=== PATIENT | female | born 1970 | race African-American/Black ===

== ENCOUNTER 2016-06-27 12:12 | Emergency (ER) | payer MEDICAID ==
[~2016-06-27 12:12] MED LIST: CEPH250C PO; GLYB5TAB8 PO; IBUP600T27 PO; LISI-275 PO; METF-312 PO
== END 2016-06-27 14:21 | disposition left against medical advice (07) ==
LOC: ER 12:17
DX: N64.4 Mastodynia (principal); R42 Dizziness and giddiness; Z53.21 Procedure and treatment not carried out due to patient leaving prior to being seen by health care provider; W19.XXXA Unspecified fall, initial encounter; Y93.89 Activity, other specified; Y99.8 Other external cause status; Y92.89 Other specified places as the place of occurrence of the external cause
CPT/HCPCS: 93005

== ENCOUNTER 2016-09-05 12:57 | Inpatient (IN) | payer MEDICAID ==
[~2016-09-05] VITALS: Ht 167.6 cm; Wt 147.3 kg
[2016-09-05 14:05] LABS: Basophils # (auto) 0.1 uL; Basophils % (auto) 0.3 % (0.0-2.0); Eosinophils # (auto) 0.1 uL; Eosinophils % (auto) 0.4 % (0.0-7.0); Hematocrit 43.3 % (36.0-46.0); Hemoglobin 14.2 g/dL (12.2-16.2); Lymphocytes # (auto) 3.6 uL; Lymphocytes % (auto) 24.5 % (10.0-50.0); Mean Corpuscular Hemoglobin 30.5 pg (28.0-32.0); Mean Corpuscular Hgb Conc. 32.7 g/dL (32.0-36.0); Mean Corpuscular Volume 93.3 fL (80.0-100.0); Mean Platelet Volume 9.1 fL (7.4-10.4); Monocytes # (auto) 1.3 uL; Monocytes % (auto) 9.1 % (0.0-12.0); Neutrophils # (auto) 9.7 uL; Neutrophils % (auto) 65.7 % (37.0-80.0); Platelet Count (auto) 413 10^3/uL (140-450); Red Cell Distribution Width 13.4 % (11.6-16.0); White Blood Cell 14.7 10^3/uL (4.4-10.8)
[2016-09-05 14:37] LABS: Albumin 2.5 g/dL (3.4-5.0); Alkaline Phosphatase 93 U/L (45-117); Anion Gap 11 (5-15); Aspartate Aminotransferase 25 U/L (15-37); BUN/Creatinine Ratio 8.5; Bilirubin, Total 0.7 mg/dL (0.2-1.0); Blood Urea Nitrogen 10 mg/dL (7-18); Calcium 8.8 mg/dL (8.5-10.1); Carbon Dioxide 28 mmol/L (21-32); Chloride 90 mmol/L (98-107); GFR African American 64 mL/min; GFR Non-African American 53 mL/min; Glucose 308 mg/dL (74-106); Magnesium 1.9 mg/dL (1.6-2.6); Potassium 3.6 mmol/L (3.5-5.1); Sodium 129 mmol/L (136-145)
[2016-09-05 17:07] LABS: Urine Bilirubin Negative (Negative); Urine Color Yellow (Yellow); Urine Glucose TRACE mg/dL (Normal); Urine Hyaline Cast MOD /lpf (0 - 2); Urine Ketone Negative (Negative); Urine Mucus FEW (None Seen); Urine Nitrite Negative (Negative); Urine RBC 52 /hpf (0 - 4); Urine Squamous Epithelial Cell FEW /hpf (<5); Urine Urobilinogen Normal (Negative); Urine WBC Clumps PRESENT /hpf (None Seen); Urine pH 5.5 (5.0-8.0)
[2016-09-05 17:08] LABS: Urine Blood 1+ /uL (Negative)
[2016-09-05] MEDS ORDERED: cefTRIAXone 1GM/50ML D5W 50 ML IV ONE (17:30)
[2016-09-05] MEDS ORDERED: IPRATROPIUM BROM 0.5 MG/2.5ML INH SOL HHN ONE (17:30)
[2016-09-05] MEDS ORDERED: ALBUTEROL SULF 2.5 MG/0.5ML(0.5%) NEB SOLN HHN ONE (17:30)
[2016-09-05] MEDS ORDERED: methylPREDNISolone SOD SUCC 125 MG/2 ML VL IV ONE (17:30)
[2016-09-05] MEDS ORDERED: MORPHINE SULF INJ 2 MG/ML SYRINGE 1ML IV PRN (17:45)
[2016-09-05] MEDS ORDERED: NITROGLYCERIN 0.4 MG SL TAB SL PRN (17:45)
[2016-09-05 18:25] LABS: REFLEX LACTIC ACID YES OR NO YES
[2016-09-05 18:32] LABS: B-Type Natriuretic Peptide 6.38 pg/mL (0-100)
[2016-09-05 18:34] LABS: Temperature: 22.7 C (20.0-25.0)
[2016-09-05] MEDS ORDERED: SODIUM CHLORIDE 0.9% 1,000 ML IV SCH (20:00)
[2016-09-05] MEDS ORDERED: LISI10TA6 PO (21:06)
[2016-09-05] MEDS ORDERED: GLIP-115 PO (21:06)
[2016-09-05] MEDS ORDERED: GABA300C8 PO (21:06)
[2016-09-05] MEDS ORDERED: HYDR12.56 PO (21:06)
[2016-09-05] MEDS ORDERED: INSLANTI SC (21:06)
[2016-09-05 21:30] VITALS: BP 125/80
[2016-09-05] MEDS ORDERED: DEXTROSE (50%) 50ML SYRG IV PRN ×2 (21:30→23:45)
[2016-09-05 22:00] VITALS: BP 125/80
[2016-09-05] MEDS ORDERED: [UNRECOGNIZED DRUG - OTHER] SC SCH (22:00)
[2016-09-05] MEDS ORDERED: InsuLIN REG 1unit/0.01ml Soln (100units/ml) SC SCH (22:00)
[2016-09-05] MEDS ORDERED: ACCU-CHEK COMFORT CURVE STRIP VI SCH (22:00)
[2016-09-05] MEDS ORDERED: INSULIN GLARGINE SC SCH (22:00)
[2016-09-05] MEDS: HYDROcodone-ACET 10/325MG TAB PO PRN (22:29)
[2016-09-05] MEDS: GABAPENTIN 300 MG CAP PO SCH (22:29)
[2016-09-05] MEDS: ALBUTEROL SULF 2.5 MG/0.5ML(0.5%) NEB SOLN NEB SCH (23:07)
[2016-09-05] MEDS: IPRATROPIUM BROM 0.5 MG/2.5ML INH SOL NEB SCH (23:07)
[2016-09-05] MEDS ORDERED: InsuLIN REG 1unit/0.01ml Soln (100units/ml) SC ONE (23:45)
[2016-09-05] MEDS ORDERED: IBUPROFEN 600 MG TAB PO PRN (23:45)
[2016-09-06] MEDS ORDERED: ACCU-CHEK COMFORT CURVE STRIP VI SCH
[2016-09-06] MEDS: ALBUTEROL SULF 2.5 MG/0.5ML(0.5%) NEB SOLN NEB SCH ×6 (02:24→21:55)
[2016-09-06] MEDS: IPRATROPIUM BROM 0.5 MG/2.5ML INH SOL NEB SCH ×6 (02:24→21:55)
[2016-09-06] MEDS ORDERED: InsuLIN R (HUMAN) 100 UNITS in SODIUM CHL 0.9% 99 ML IV SCH ×2 (02:43→04:58)
[2016-09-06] MEDS ORDERED: DEXTROSE (50%) 50ML SYRG IV PRN (02:45)
[2016-09-06] MEDS: ACCU-CHEK COMFORT CURVE STRIP VI SCH ×20 (03:00→23:00)
[2016-09-06 03:02] LABS: Basophils # (auto) 0 uL; Basophils % (auto) 0.2 % (0.0-2.0); Eosinophils # (auto) 0 uL; Hemoglobin 13.2 g/dL (12.2-16.2); Lymphocytes # (auto) 1.1 uL; Lymphocytes % (auto) 10.4 % (10.0-50.0); Mean Corpuscular Hemoglobin 30.9 pg (28.0-32.0); Mean Corpuscular Hgb Conc. 33.1 g/dL (32.0-36.0); Mean Corpuscular Volume 93.5 fL (80.0-100.0); Mean Platelet Volume 9.6 fL (7.4-10.4); Monocytes # (auto) 0.1 uL; Monocytes % (auto) 1.1 % (0.0-12.0); Neutrophils # (auto) 9.6 uL; Neutrophils % (auto) 88.3 % (37.0-80.0); Platelet Count (auto) 374 10^3/uL (140-450); Red Cell Distribution Width 13.4 % (11.6-16.0); SUSPECT VIEW TRANSMISSION; White Blood Cell 10.9 10^3/uL (4.4-10.8)
[2016-09-06 03:12] LABS: BUN/Creatinine Ratio 15.1; Calcium 8.6 mg/dL (8.5-10.1); Magnesium 1.9 mg/dL (1.6-2.6); Phosphorus 4.2 mg/dL (2.5-4.90); Potassium 4.2 mmol/L (3.5-5.1)
[2016-09-06 04:15] VITALS: BP 130/75
[2016-09-06] MEDS: SODIUM CHLORIDE 0.9% 1,000 ML IV SCH ×5 (05:30→20:53)
[2016-09-06] MEDS: GABAPENTIN 300 MG CAP PO SCH ×5 (06:00→21:57)
[2016-09-06] MEDS ORDERED: glipiZIDE 5 MG TAB PO SCH ×2 (07:00→10:00)
[2016-09-06] MEDS ORDERED: InsuLIN REG 1unit/0.01ml Soln (100units/ml) SC SCH ×2 (07:00)
[2016-09-06 07:35] LABS: Basophils # (auto) 0 uL; Basophils % (auto) 0.4 % (0.0-2.0); Eosinophils # (auto) 0 uL; Hematocrit 39.7 % (36.0-46.0); Hemoglobin 13.3 g/dL (12.2-16.2); Lymphocytes # (auto) 1.4 uL; Lymphocytes % (auto) 12.4 % (10.0-50.0); Mean Corpuscular Hemoglobin 31.1 pg (28.0-32.0); Mean Corpuscular Hgb Conc. 33.6 g/dL (32.0-36.0); Mean Corpuscular Volume 92.5 fL (80.0-100.0); Mean Platelet Volume 9.1 fL (7.4-10.4); Monocytes # (auto) 0.4 uL; Monocytes % (auto) 3.7 % (0.0-12.0); Neutrophils # (auto) 9.2 uL; Neutrophils % (auto) 83.5 % (37.0-80.0); Platelet Count (auto) 390 10^3/uL (140-450); Red Cell Distribution Width 13.5 % (11.6-16.0)
[2016-09-06 08:00] VITALS: BP 134/68
[2016-09-06 08:18] LABS: Albumin 2.4 g/dL (3.4-5.0); BUN/Creatinine Ratio 14.7; Bilirubin, Total 0.6 mg/dL (0.2-1.0); Calcium 8.7 mg/dL (8.5-10.1); Potassium 3.6 mmol/L (3.5-5.1)
[2016-09-06 08:38] LABS: B-Type Natriuretic Peptide 44.4 pg/mL (0-100); Temperature: 24.5 C (20.0-25.0)
[2016-09-06] MEDS: HCTZ 25 MG TAB PO SCH (09:32)
[2016-09-06] MEDS: PANTOPRAZOLE 40 MG TAB PO SCH (09:32)
[2016-09-06] MEDS: ENOXAPARIN SOD 40 MG/0.4 ML SYRINGE SC SCH (09:32)
[2016-09-06] MEDS: LISINOPRIL 10 MG TAB PO SCH (09:33)
[2016-09-06] MEDS ORDERED: SODIUM CHLORIDE 0.9% 1,000 ML IV SCH ×2 (09:52→20:00)
[2016-09-06 09:55] LABS: BUN/Creatinine Ratio 16.2; Calcium 8.8 mg/dL (8.5-10.1); Potassium 3.9 mmol/L (3.5-5.1)
[2016-09-06] MEDS ORDERED: HCTZ 25 MG TAB PO SCH (10:00)
[2016-09-06] MEDS ORDERED: HYDROCHLOROTHIAZIDE PO SCH (10:00)
[2016-09-06] MEDS ORDERED: INSULIN DETEMIR(LEVEMIR) 1unit/0.01ml Soln (100units/ml) SC SCH ×2 (10:00)
[2016-09-06] MEDS ORDERED: LISINOPRIL 5 MG TAB PO SCH (10:00)
[2016-09-06] MEDS ORDERED: LISINOPRIL 10 MG TAB PO SCH (10:00)
[2016-09-06] MEDS ORDERED: metFORMIN HYDROCHLORIDE 500 MG TAB PO SCH (10:00)
[2016-09-06] MEDS ORDERED: glyBURIDE 5 MG TAB PO SCH (10:00)
[2016-09-06] MEDS ORDERED: INSULIN GLARGINE 12 UNIT SC SCH ×2 (10:00)
[2016-09-06] MEDS: HYDROcodone-ACET 10/325MG TAB PO PRN ×2 (10:26→22:19)
[2016-09-06 12:00] VITALS: BP 115/75
[2016-09-06 15:15] VITALS: BP 134/68
[2016-09-06 16:00] VITALS: BP 122/75
[2016-09-06 20:00] VITALS: BP 108/59
[2016-09-06] MEDS: InsuLIN R (HUMAN) 100 UNITS in SODIUM CHL 0.9% 99 ML IV SCH (20:14)
[2016-09-06] MEDS: cefTRIAXone 1GM/50ML D5W 50 ML IV SCH (21:56)
[2016-09-07] VITALS: BP 130/73
[2016-09-07] MEDS: ACCU-CHEK COMFORT CURVE STRIP VI SCH ×16 (00:17→22:00)
[2016-09-07] MEDS: IPRATROPIUM BROM 0.5 MG/2.5ML INH SOL NEB SCH ×6 (02:16→22:04)
[2016-09-07] MEDS: ALBUTEROL SULF 2.5 MG/0.5ML(0.5%) NEB SOLN NEB SCH ×6 (02:16→22:04)
[2016-09-07 04:00] VITALS: BP 136/63
[2016-09-07 06:28] LABS: Basophils # (auto) 0 uL; Basophils % (auto) 0.1 % (0.0-2.0); Eosinophils # (auto) 0 uL; Eosinophils % (auto) 0.1 % (0.0-7.0); Hematocrit 38.8 % (36.0-46.0); Hemoglobin 12.9 g/dL (12.2-16.2); Lymphocytes # (auto) 1.8 uL; Lymphocytes % (auto) 12.3 % (10.0-50.0); Mean Corpuscular Hgb Conc. 33.2 g/dL (32.0-36.0); Mean Corpuscular Volume 93.4 fL (80.0-100.0); Mean Platelet Volume 9.3 fL (7.4-10.4); Monocytes % (auto) 6.5 % (0.0-12.0); Neutrophils # (auto) 11.9 uL; Platelet Count (auto) 409 10^3/uL (140-450); White Blood Cell 14.7 10^3/uL (4.4-10.8)
[2016-09-07 06:41] LABS: Calcium 8.7 mg/dL (8.5-10.1); Potassium 3.5 mmol/L (3.5-5.1)
[2016-09-07] MEDS: GABAPENTIN 300 MG CAP PO SCH ×3 (07:05→22:58)
[2016-09-07] MEDS: InsuLIN R (HUMAN) 100 UNITS in SODIUM CHL 0.9% 99 ML IV SCH (07:07)
[2016-09-07 07:48] VITALS: BP 124/74
[2016-09-07] MEDS: SODIUM CHLORIDE 0.9% 1,000 ML IV SCH ×2 (09:00→14:15)
[2016-09-07] MEDS: PANTOPRAZOLE 40 MG TAB PO SCH (10:32)
[2016-09-07] MEDS: HCTZ 25 MG TAB PO SCH (10:32)
[2016-09-07] MEDS: LISINOPRIL 10 MG TAB PO SCH (10:33)
[2016-09-07] MEDS: ENOXAPARIN SOD 40 MG/0.4 ML SYRINGE SC SCH (10:33)
[2016-09-07 12:08] VITALS: BP 132/69
[2016-09-07] MEDS: HYDROcodone-ACET 10/325MG TAB PO PRN ×2 (13:36→21:31)
[2016-09-07] MEDS ORDERED: DEXTROSE (50%) 50ML SYRG IV PRN (14:15)
[2016-09-07] MEDS ORDERED: INSULIN DETEMIR(LEVEMIR) 1unit/0.01ml Soln (100units/ml) SC ONE (14:45)
[2016-09-07] MEDS ORDERED: guaiFENesin-DEXTROMETHORPHAN 5ML SYR PO PRN (15:00)
[2016-09-07] MEDS ORDERED: glipiZIDE 5 MG TAB PO ONE (15:00)
[2016-09-07 16:00] VITALS: BP 130/73
[2016-09-07] MEDS: InsuLIN REG 1unit/0.01ml Soln (100units/ml) SC SCH ×2 (17:10→22:56)
[2016-09-07 21:43] VITALS: BP 107/61
[2016-09-07] MEDS ORDERED: ATORVASTATIN 20 MG TAB PO SCH (22:00)
[2016-09-07] MEDS: INSULIN DETEMIR(LEVEMIR) 1unit/0.01ml Soln (100units/ml) SC SCH (22:58)
[2016-09-07] MEDS: cefTRIAXone 1GM/50ML D5W 50 ML IV SCH (22:59)
[2016-09-08] MEDS: ALBUTEROL SULF 2.5 MG/0.5ML(0.5%) NEB SOLN NEB SCH ×4 (02:23→13:57)
[2016-09-08] MEDS: IPRATROPIUM BROM 0.5 MG/2.5ML INH SOL NEB SCH ×4 (02:23→13:57)
[2016-09-08] MEDS: SODIUM CHLORIDE 0.9% 1,000 ML IV SCH (05:00)
[2016-09-08 05:15] VITALS: BP 120/72
[2016-09-08 06:35] LABS: Basophils # (auto) 0 uL; Basophils % (auto) 0.3 % (0.0-2.0); Eosinophils # (auto) 0 uL; Eosinophils % (auto) 0.3 % (0.0-7.0); Hematocrit 38.6 % (36.0-46.0); Hemoglobin 12.7 g/dL (12.2-16.2); Lymphocytes # (auto) 3.1 uL; Lymphocytes % (auto) 24.8 % (10.0-50.0); Mean Corpuscular Hemoglobin 30.8 pg (28.0-32.0); Mean Corpuscular Hgb Conc. 32.8 g/dL (32.0-36.0); Mean Corpuscular Volume 93.7 fL (80.0-100.0); Monocytes # (auto) 1.5 uL; Monocytes % (auto) 12.3 % (0.0-12.0); Neutrophils # (auto) 7.7 uL; Neutrophils % (auto) 62.3 % (37.0-80.0); Platelet Count (auto) 438 10^3/uL (140-450); Red Cell Distribution Width 13.6 % (11.6-16.0); White Blood Cell 12.4 10^3/uL (4.4-10.8)
[2016-09-08] MEDS: ACCU-CHEK COMFORT CURVE STRIP VI SCH ×2 (06:37→06:45)
[2016-09-08] MEDS: GABAPENTIN 300 MG CAP PO SCH (06:44)
[2016-09-08] MEDS: HYDROcodone-ACET 10/325MG TAB PO PRN (06:45)
[2016-09-08] MEDS: InsuLIN REG 1unit/0.01ml Soln (100units/ml) SC SCH ×2 (06:46→11:23)
[2016-09-08] MEDS: INSULIN DETEMIR(LEVEMIR) 1unit/0.01ml Soln (100units/ml) SC SCH (06:48)
[2016-09-08] MEDS ORDERED: glipiZIDE 5 MG TAB PO SCH (07:00)
[2016-09-08 07:02] LABS: Albumin 2.2 g/dL (3.4-5.0); BUN/Creatinine Ratio 13.4; Bilirubin, Total 0.4 mg/dL (0.2-1.0); Calcium 8.7 mg/dL (8.5-10.1); Magnesium 1.6 mg/dL (1.6-2.6); Potassium 3.5 mmol/L (3.5-5.1); Total Protein 7.8 g/dL (6.4-8.2)
[2016-09-08 09:00] VITALS: BP 110/65
[2016-09-08] MEDS: PANTOPRAZOLE 40 MG TAB PO SCH (10:11)
[2016-09-08] MEDS: LISINOPRIL 10 MG TAB PO SCH (10:11)
[2016-09-08] MEDS: ENOXAPARIN SOD 40 MG/0.4 ML SYRINGE SC SCH (10:11)
[2016-09-08] MEDS: HCTZ 25 MG TAB PO SCH (10:11)
[2016-09-08] MEDS ORDERED: DOXY-216 PO (11:20)
[2016-09-08] MEDS ORDERED: ALBUAER3 IN (11:20)
[2016-09-08] MEDS ORDERED: ATOR20TA50 PO (11:20)
[2016-09-08] MEDS ORDERED: MAGNESIUM OXIDE 400 MG TAB PO ONE (11:30)
[2016-09-08 13:00] VITALS: BP 146/73
== END 2016-09-08 14:40 | disposition home or self-care (01) | DRG 720 ==
LOC: ER 12:57 → TELE 12:58 → TELE-EAST 21:18 → DOU IN ICU 09-06 03:06 → TELE-WESTW 09-07 17:28
PROVIDERS: ADMIT Nurse Practitioner Acute Care; ATTEND Internal Medicine
DX: A41.9 Sepsis, unspecified organism (principal); N17.0 Acute kidney failure with tubular necrosis; E13.10 Other specified diabetes mellitus with ketoacidosis without coma; E44.0 Moderate protein-calorie malnutrition; J44.1 Chronic obstructive pulmonary disease with (acute) exacerbation; E87.1 Hypo-osmolality and hyponatremia; N39.0 Urinary tract infection, site not specified; E66.01 Morbid (severe) obesity due to excess calories; N18.9 Chronic kidney disease, unspecified; E78.5 Hyperlipidemia, unspecified; B95.61 Methicillin susceptible Staphylococcus aureus infection as the cause of diseases classified elsewhere; F17.210 Nicotine dependence, cigarettes, uncomplicated; J20.9 Acute bronchitis, unspecified; J44.0 Chronic obstructive pulmonary disease with (acute) lower respiratory infection; G89.29 Other chronic pain; M19.90 Unspecified osteoarthritis, unspecified site; M54.30 Sciatica, unspecified side; M54.5 Low back pain; G47.33 Obstructive sleep apnea (adult) (pediatric); E11.22 Type 2 diabetes mellitus with diabetic chronic kidney disease; I12.9 Hypertensive chronic kidney disease with stage 1 through stage 4 chronic kidney disease, or unspecified chronic kidney disease; E11.21 Type 2 diabetes mellitus with diabetic nephropathy; Z91.19 Patient's noncompliance with other medical treatment and regimen; Z78.0 Asymptomatic menopausal state; Z68.43 Body mass index [BMI] 50.0-59.9, adult; Z79.899 Other long term (current) drug therapy; Z82.49 Family history of ischemic heart disease and other diseases of the circulatory system; Z83.3 Family history of diabetes mellitus; Z79.4 Long term (current) use of insulin; Z79.84 Long term (current) use of oral hypoglycemic drugs
CPT/HCPCS: 36415; 71020; 80048; 80053; 80061; 81001; 81025; 82010; 82947; 82962; 83036; 83605; 83735; 83880; 83930; 83935; 84100; 84443; 84484; 85025; 87040; 87070; 87081; 87086; 87088; 87186; 87205; 93005; 94640; 94761; 96361; 96365; 96375; J0696; J1815

== ENCOUNTER 2016-10-25 15:08 | Emergency (ER) | payer MEDICAID ==
[~2016-10-25] VITALS: Ht 170.2 cm; Wt 135.6 kg
[~2016-10-25 15:08] MED LIST changes: +ALBUAER3 IN; +ATOR20TA50 PO; -CEPH250C PO; +DOXY-216 PO; +GABA-497 PO; +GLIP-115 PO; +HYDR12.56 PO; +INSLANTI SC; +LISI10TA6 PO; -METF-312 PO; +METF-370 PO
[2016-10-25 15:31] VITALS: BP 150/86
[2016-10-25] MEDS ORDERED: KETOROLAC TROMETH 60MG/2ML VIAL IM ONE (17:45)
== END 2016-10-25 17:59 | disposition home or self-care (01) ==
LOC: ER 15:09
DX: M17.12 Unilateral primary osteoarthritis, left knee (principal); M17.11 Unilateral primary osteoarthritis, right knee; R07.9 Chest pain, unspecified; J45.909 Unspecified asthma, uncomplicated; E11.9 Type 2 diabetes mellitus without complications; I10 Essential (primary) hypertension; F17.210 Nicotine dependence, cigarettes, uncomplicated; Z91.012 Allergy to eggs; Z91.018 Allergy to other foods; Z88.5 Allergy status to narcotic agent; Z91.013 Allergy to seafood; Z79.4 Long term (current) use of insulin
CPT/HCPCS: 73562; 96372; 99284; J1885

== ENCOUNTER 2017-03-01 16:06 | Emergency (ER) | payer MEDICAID ==
[~2017-03-01] VITALS: Ht 170.2 cm; Wt 133.8 kg
[2017-03-01 16:40] VITALS: BP 132/94
[2017-03-01 17:52] LABS: Basophils # (auto) 0.1 uL; Basophils % (auto) 1.1 % (0.0-2.0); Eosinophils # (auto) 0 uL; Eosinophils % (auto) 0.3 % (0.0-7.0); Hematocrit 43.8 % (36.0-46.0); Hemoglobin 14.9 g/dL (12.2-16.2); Lymphocytes # (auto) 3.2 uL; Lymphocytes % (auto) 24.4 % (10.0-50.0); Mean Corpuscular Hgb Conc. 34.1 g/dL (32.0-36.0); Monocytes # (auto) 0.7 uL; Monocytes % (auto) 5.1 % (0.0-12.0); Neutrophils % (auto) 69.1 % (37.0-80.0); Nucleated Red Blood Cells % 0.1 %; Platelet Count (auto) 313 10^3/uL (140-450); Red Cell Distribution Width 13.4 % (11.8-14.3)
[2017-03-01 18:13] LABS: Albumin 2.8 g/dL (3.4-5.0); BUN/Creatinine Ratio 10.2; Bilirubin, Total 0.5 mg/dL (0.2-1.0); Calcium 8.9 mg/dL (8.5-10.1); Potassium 3.6 mmol/L (3.5-5.1); Total Protein 8.7 g/dL (6.4-8.2)
== END 2017-03-01 18:18 | disposition left against medical advice (07) ==
LOC: EDBD 16:06 → ER 16:06 → EDUNIT# 16:06 → ER 18:18
DX: R10.84 Generalized abdominal pain (principal); R11.10 Vomiting, unspecified; Z53.21 Procedure and treatment not carried out due to patient leaving prior to being seen by health care provider
CPT/HCPCS: 36415; 80053; 83690; 85025

== ENCOUNTER 2017-12-29 12:14 | Observation (INO) | payer MEDICAID ==
[~2017-12-29] VITALS: Ht 170.2 cm; Wt 133.8 kg
[~2017-12-29 12:14] MED LIST changes: -DOXY-216 PO; -GABA-497 PO; +GABA300C10 PO; -GLIP-115 PO; -IBUP600T27 PO; +LEVO500T21 PO; -LISI-275 PO
[2017-12-29 13:59] LABS: Basophils # (auto) 0 uL; Basophils % (auto) 0.3 % (0.0-2.0); Eosinophils # (auto) 0.1 uL; Eosinophils % (auto) 1.2 % (0.0-7.0); Hematocrit 46.1 % (36.0-46.0); Hemoglobin 15.2 g/dL (12.2-16.2); Lymphocytes # (auto) 2.8 uL; Lymphocytes % (auto) 30.2 % (10.0-50.0); Mean Corpuscular Hemoglobin 31.3 pg (28.0-32.0); Mean Corpuscular Hgb Conc. 32.9 g/dL (32.0-36.0); Mean Corpuscular Volume 95.2 fL (80.0-100.0); Monocytes # (auto) 0.5 uL; Monocytes % (auto) 5.3 % (0.0-12.0); Neutrophils # (auto) 5.9 uL; Nucleated Red Blood Cells % 0.2 %; Platelet Count (auto) 279 10^3/uL (140-450); Red Blood Cells 4.84 10^6/uL (4.0-5.20); Red Cell Distribution Width 13.9 % (11.8-14.3); White Blood Cell 9.4 10^3/uL (4.4-10.8)
[2017-12-29 14:18] LABS: Albumin 2.6 g/dL (3.4-5.0); Anion Gap 11 (5-15); BUN/Creatinine Ratio 13.5; Blood Urea Nitrogen 15 mg/dL (7-18); Calcium 8.3 mg/dL (8.5-10.1); Carbon Dioxide 23 mmol/L (21-32); Chloride 100 mmol/L (98-107); GFR African American 68 mL/min; GFR Non-African American 56 mL/min; Glucose 362 mg/dL (74-106); Magnesium 1.8 mg/dL (1.6-2.6); Potassium 3.9 mmol/L (3.5-5.1); Sodium 134 mmol/L (136-145)
[2017-12-29 14:25] LABS: Alanine Aminotransferase 34 U/L (13-56); Alkaline Phosphatase 81 U/L (45-117); Aspartate Aminotransferase 40 U/L (15-37); Bilirubin, Total 0.6 mg/dL (0.2-1.0); Total Protein 8.1 g/dL (6.4-8.2)
[2017-12-29] MEDS ORDERED: SODIUM CHLORIDE 0.9% 1,000 ML IVB ONE (18:13)
[2017-12-29 19:02] LABS: Urine Bacteria FEW /hpf (None Seen); Urine Blood TRACE /uL (Negative); Urine Budding Yeast LOADED /hpf (None Seen); Urine Specific Gravity 1.021 (1.001-1.035); Urine WBC 499 /hpf (0 - 5); Urine WBC Clumps PRESENT /hpf (None Seen)
[2017-12-29 19:08] LABS: Amphetamine Screen, Urine NEGATIVE (NEGATIVE); Barbiturate Scree,Urine NEGATIVE (NEGATIVE); Benzodiazephine Screen, Urine NEGATIVE (NEGATIVE); Cannabinoid Screen, Urine NEGATIVE (NEGATIVE); Cocaine Screen, Urine NEGATIVE (NEGATIVE); Opiate Scree,Urine NEGATIVE (NEGATIVE); Phencyclidine Screen, Urine NEGATIVE (NEGATIVE)
[2017-12-29 20:01] LABS: INR 0.96 (0.9-1.15); Partial Thromboplastin Time 25.3 sec (23.78-33.04); Prothrombin Time 10.3 sec (9.27-12.13)
[2017-12-29] MEDS ORDERED: cefTRIAXone 1GM/10ml IVPUSH 10 ML IV ONE (20:45)
[2017-12-29 21:08] VITALS: BP 124/85
[2017-12-29] MEDS ORDERED: InsuLIN REG 1unit/0.01ml Soln (100units/ml) SC ONE (21:15)
== END 2017-12-29 21:08 | disposition short-term general hospital (02) | DRG 44 ==
LOC: ER 12:14 → EDBD 12:14 → OVERFLOW 12:15 → ER 21:08
PROVIDERS: ADMIT Family Medicine; ATTEND Family Medicine
DX: I61.9 Nontraumatic intracerebral hemorrhage, unspecified (principal); E11.65 Type 2 diabetes mellitus with hyperglycemia; N39.0 Urinary tract infection, site not specified; R42 Dizziness and giddiness; I10 Essential (primary) hypertension; G89.29 Other chronic pain; M54.5 Low back pain; M19.90 Unspecified osteoarthritis, unspecified site; F17.210 Nicotine dependence, cigarettes, uncomplicated; F12.10 Cannabis abuse, uncomplicated; Z82.49 Family history of ischemic heart disease and other diseases of the circulatory system; Z91.012 Allergy to eggs; Z91.013 Allergy to seafood; Z91.018 Allergy to other foods; Z88.5 Allergy status to narcotic agent
CPT/HCPCS: 36415; 70450; 71045; 80053; 80307; 81001; 81025; 82962; 83735; 84484; 85025; 85610; 85730; 96361; 96372; 96374; 99291; G0378; J0696; J7030

== ENCOUNTER 2018-01-24 14:17 | Inpatient (IN) | payer MEDICAID ==
[~2018-01-24] VITALS: Ht 152.4 cm; Wt 137.1 kg
[2018-01-24 15:53] LABS: Basophils # (auto) 0.2 uL; Eosinophils # (auto) 0.1 uL; Eosinophils % (auto) 0.5 % (0.0-7.0); Hematocrit 44.8 % (36.0-46.0); Lymphocytes # (auto) 2.7 uL; Lymphocytes % (auto) 12.7 % (10.0-50.0); Mean Corpuscular Hemoglobin 31.3 pg (28.0-32.0); Mean Corpuscular Hgb Conc. 33.4 g/dL (32.0-36.0); Mean Corpuscular Volume 93.7 fL (80.0-100.0); Monocytes # (auto) 0.9 uL; Monocytes % (auto) 4.3 % (0.0-12.0); Neutrophils # (auto) 17.4 uL; Neutrophils % (auto) 81.5 % (37.0-80.0); Nucleated Red Blood Cells % 0.1 %; Platelet Count (auto) 378 10^3/uL (140-450); Red Blood Cells 4.77 10^6/uL (4.0-5.20); Red Cell Distribution Width 13.6 % (11.8-14.3); White Blood Cell 21.3 10^3/uL (4.4-10.8)
[2018-01-24] MEDS ORDERED: SODIUM CHLORIDE 0.9% 500 ML IV ONE (16:11)
[2018-01-24 16:12] LABS: Lactic Acid w/Reflex 2.3 mmol/L (0.4-2.0)
[2018-01-24] MEDS ORDERED: CLINDAMYCIN 600MG IV 50 ML IV ONE (16:15)
[2018-01-24 16:19] LABS: Albumin 2.3 g/dL (3.4-5.0); BUN/Creatinine Ratio 6.8; Bilirubin, Total 0.6 mg/dL (0.2-1.0); Calcium 8.5 mg/dL (8.5-10.1); Total Protein 8.6 g/dL (6.4-8.2)
[2018-01-24] MEDS ORDERED: POTASSIUM CHL 20MEQ/100ML 100 ML IV ONE (16:45)
[2018-01-24] MEDS ORDERED: DEXTROSE (50%) 50ML SYRG IV PRN ×2 (17:45→21:30)
[2018-01-24] MEDS ORDERED: cefTRIAXone 1GM/10ml IVPUSH 10 ML IV ONE (17:45)
[2018-01-24] MEDS ORDERED: DOCUSATE SOD 100 MG CAP PO PRN (18:00)
[2018-01-24] MEDS ORDERED: NITROGLYCERIN 0.4 MG SL TAB SL PRN (18:00)
[2018-01-24] MEDS ORDERED: TEMAZEPAM 15 MG CAP PO PRN (18:00)
[2018-01-24] MEDS ORDERED: IPRATROPIUM BROM 0.5 MG/2.5ML INH SOL ONE (18:10)
[2018-01-24] MEDS ORDERED: ALBUTEROL SULF 2.5 MG/0.5ML(0.5%) NEB SOLN ONE (18:10)
[2018-01-24] MEDS: ALBUTEROL SULF 2.5 MG/0.5ML(0.5%) NEB SOLN NEB SCH ×2 (18:27→23:46)
[2018-01-24] MEDS: IPRATROPIUM BROM 0.5 MG/2.5ML INH SOL NEB SCH ×2 (18:27→23:46)
[2018-01-24] MEDS: glipiZIDE 5 MG TAB PO SCH (18:49)
[2018-01-24] MEDS: Glucerna Carbsteady SHAKE Vanilla 8oz PO SCH (18:49)
[2018-01-24] MEDS: ACETAMINOPHEN 325 MG TAB PO PRN (18:50)
[2018-01-24] MEDS ORDERED: INSULIN LANTUS (GLARGINE) 1 /0.01ml (100units/ml) SC SCH (19:00)
[2018-01-24 20:35] VITALS: BP 137/67
[2018-01-24] MEDS: INSULIN LANTUS (GLARGINE) 1 /0.01ml (100units/ml) SC SCH (20:55)
[2018-01-24] MEDS: CLINDAMYCIN 300MG IV 50 ML IV SCH (21:04)
[2018-01-24 21:15] VITALS: BP 118/86
[2018-01-24] MEDS: GABAPENTIN 400 MG CAP PO SCH (21:51)
[2018-01-24] MEDS: ATORVASTATIN 20 MG TAB PO SCH (21:51)
[2018-01-24] MEDS: FAMOTIDINE 20 MG TAB PO SCH (21:51)
[2018-01-24] MEDS: HYDROcodone-ACET 5/325MG TAB PO PRN (21:51)
[2018-01-24 21:54] VITALS: BP 119/86
[2018-01-24] MEDS: SODIUM CHLOR 0.9% PF (SALINE LOCK) 10ML VIAL/SYR IV SCH (21:55)
[2018-01-24] MEDS: ASCORBIC ACID 500 MG TAB PO SCH (21:55)
[2018-01-24] MEDS ORDERED: InsuLIN REG 1unit/0.01ml Soln (100units/ml) SC SCH (22:00)
[2018-01-24] MEDS ORDERED: ACCU-CHEK COMFORT CURVE STRIP VI SCH (22:00)
[2018-01-24] MEDS: InsuLIN REG 1unit/0.01ml Soln (100units/ml) SC SCH (23:23)
[2018-01-24] MEDS: ACCU-CHEK COMFORT CURVE STRIP VI SCH (23:23)
[2018-01-25] MEDS: ACETAMINOPHEN 325 MG TAB PO PRN ×2 (03:03→21:33)
[2018-01-25 04:52] VITALS: BP 133/73
[2018-01-25] MEDS: CLINDAMYCIN 300MG IV 50 ML IV SCH ×3 (05:31→21:34)
[2018-01-25] MEDS: glipiZIDE 5 MG TAB PO SCH ×2 (06:15→18:06)
[2018-01-25] MEDS: GABAPENTIN 400 MG CAP PO SCH ×3 (06:15→21:33)
[2018-01-25] MEDS: ACCU-CHEK COMFORT CURVE STRIP VI SCH ×4 (06:16→21:44)
[2018-01-25] MEDS: SODIUM CHLOR 0.9% PF (SALINE LOCK) 10ML VIAL/SYR IV SCH ×3 (06:16→21:34)
[2018-01-25] MEDS: InsuLIN REG 1unit/0.01ml Soln (100units/ml) SC SCH ×4 (06:17→21:44)
[2018-01-25] MEDS: ALBUTEROL SULF 2.5 MG/0.5ML(0.5%) NEB SOLN NEB SCH ×3 (06:28→18:52)
[2018-01-25] MEDS: IPRATROPIUM BROM 0.5 MG/2.5ML INH SOL NEB SCH ×3 (06:28→18:52)
[2018-01-25] MEDS ORDERED: InsuLIN REG 1unit/0.01ml Soln (100units/ml) SC SCH (07:00)
[2018-01-25 07:33] LABS: Urine Bacteria FEW /hpf (None Seen); Urine Blood Negative /uL (Negative); Urine Specific Gravity 1.013 (1.001-1.035); Urine WBC 11 /hpf (0 - 5)
[2018-01-25] MEDS: HYDROcodone-ACET 5/325MG TAB PO PRN ×3 (07:49→22:20)
[2018-01-25] MEDS: Glucerna Carbsteady SHAKE Vanilla 8oz PO SCH ×3 (08:00→18:07)
[2018-01-25 08:19] LABS: Basophils # (auto) 0.2 uL; Eosinophils # (auto) 0.1 uL; Eosinophils % (auto) 0.6 % (0.0-7.0); Hematocrit 41.4 % (36.0-46.0); Hemoglobin 13.5 g/dL (12.2-16.2); Lymphocytes # (auto) 4.8 uL; Lymphocytes % (auto) 23.8 % (10.0-50.0); Mean Corpuscular Hemoglobin 30.6 pg (28.0-32.0); Mean Corpuscular Hgb Conc. 32.6 g/dL (32.0-36.0); Mean Corpuscular Volume 93.8 fL (80.0-100.0); Monocytes # (auto) 1.3 uL; Monocytes % (auto) 6.2 % (0.0-12.0); Neutrophils # (auto) 13.8 uL; Neutrophils % (auto) 68.4 % (37.0-80.0); Nucleated Red Blood Cells % 0.1 %; Platelet Count (auto) 368 10^3/uL (140-450); Red Blood Cells 4.41 10^6/uL (4.0-5.20); Red Cell Distribution Width 13.8 % (11.8-14.3); White Blood Cell 20.3 10^3/uL (4.4-10.8)
[2018-01-25 08:34] VITALS: BP 88/51
[2018-01-25 08:43] LABS: Albumin 2.2 g/dL (3.4-5.0); BUN/Creatinine Ratio 9.2; Bilirubin, Total 0.7 mg/dL (0.2-1.0); Calcium 8.1 mg/dL (8.5-10.1); Total Protein 8.6 g/dL (6.4-8.2)
[2018-01-25 08:58] LABS: Potassium 2.9 mmol/L (3.5-5.1)
[2018-01-25] MEDS: cefTRIAXone 1GM/10ml IVPUSH 10 ML IV SCH (09:04)
[2018-01-25] MEDS: INSULIN LANTUS (GLARGINE) 1 /0.01ml (100units/ml) SC SCH ×2 (09:05→20:06)
[2018-01-25] MEDS: ZINC SULFATE 220mg CAP or TAB PO SCH (11:02)
[2018-01-25] MEDS: HCTZ 25 MG TAB PO SCH (11:04)
[2018-01-25] MEDS: FAMOTIDINE 20 MG TAB PO SCH ×2 (11:04→21:33)
[2018-01-25] MEDS: ASCORBIC ACID 500 MG TAB PO SCH ×2 (11:04→21:33)
[2018-01-25] MEDS: MULTIPLE VITAMIN TAB PO SCH (11:05)
[2018-01-25] MEDS: LISINOPRIL 10 MG TAB PO SCH (11:06)
[2018-01-25 11:44] VITALS: BP 142/79
[2018-01-25] MEDS ORDERED: POTASSIUM CHL 20 Meq TABLET PO ONE (12:15)
[2018-01-25] MEDS ORDERED: DAKINS HALF STR 0.25% (NaHypochlorite) 473 ML TOPICAL SOL TOP ONE (13:30)
[2018-01-25 16:51] VITALS: BP 132/80
[2018-01-25] MEDS: ATORVASTATIN 20 MG TAB PO SCH (21:33)
[2018-01-25 22:00] VITALS: BP 103/56
[2018-01-26] MEDS: IPRATROPIUM BROM 0.5 MG/2.5ML INH SOL NEB SCH ×4 (00:20→20:17)
[2018-01-26] MEDS: ALBUTEROL SULF 2.5 MG/0.5ML(0.5%) NEB SOLN NEB SCH ×4 (00:20→20:17)
[2018-01-26] MEDS: ACETAMINOPHEN 325 MG TAB PO PRN (04:22)
[2018-01-26 05:00] VITALS: BP 106/57
[2018-01-26] MEDS: GABAPENTIN 400 MG CAP PO SCH ×3 (05:26→21:41)
[2018-01-26] MEDS: CLINDAMYCIN 300MG IV 50 ML IV SCH ×3 (05:26→21:42)
[2018-01-26] MEDS: HYDROcodone-ACET 5/325MG TAB PO PRN ×3 (05:27→20:03)
[2018-01-26] MEDS: SODIUM CHLOR 0.9% PF (SALINE LOCK) 10ML VIAL/SYR IV SCH ×3 (05:36→21:45)
[2018-01-26] MEDS: glipiZIDE 5 MG TAB PO SCH ×3 (07:00→17:44)
[2018-01-26] MEDS: InsuLIN REG 1unit/0.01ml Soln (100units/ml) SC SCH ×4 (07:00→21:46)
[2018-01-26] MEDS: ACCU-CHEK COMFORT CURVE STRIP VI SCH ×4 (07:00→21:45)
[2018-01-26 08:48] VITALS: BP 120/66
[2018-01-26] MEDS: Glucerna Carbsteady SHAKE Vanilla 8oz PO SCH ×3 (08:56→17:39)
[2018-01-26] MEDS: INSULIN LANTUS (GLARGINE) 1 /0.01ml (100units/ml) SC SCH ×2 (08:58→19:29)
[2018-01-26] MEDS: ZINC SULFATE 220mg CAP or TAB PO SCH (08:59)
[2018-01-26] MEDS: FAMOTIDINE 20 MG TAB PO SCH ×2 (08:59→21:41)
[2018-01-26] MEDS: MULTIPLE VITAMIN TAB PO SCH (08:59)
[2018-01-26] MEDS: ASCORBIC ACID 500 MG TAB PO SCH ×2 (08:59→21:41)
[2018-01-26] MEDS: cefTRIAXone 1GM/10ml IVPUSH 10 ML IV SCH (08:59)
[2018-01-26] MEDS: LISINOPRIL 10 MG TAB PO SCH (09:00)
[2018-01-26] MEDS: HCTZ 25 MG TAB PO SCH (09:00)
[2018-01-26] MEDS ORDERED: DEXTROSE (50%) 50ML SYRG IV PRN (10:30)
[2018-01-26 13:00] VITALS: BP 135/70
[2018-01-26 17:00] VITALS: BP 137/70
[2018-01-26] MEDS: DAKINS QUARTER STR 0.125% (NaHypochlorite) 473 ML TOPICAL SOL TOP SCH (17:38)
[2018-01-26] MEDS: ATORVASTATIN 20 MG TAB PO SCH (21:41)
[2018-01-26] MEDS: POTASSIUM CHL 20 Meq TABLET PO SCH (21:42)
[2018-01-26 22:00] VITALS: BP 116/55
[2018-01-27] MEDS: HYDROcodone-ACET 5/325MG TAB PO PRN ×3 (00:49→19:59)
[2018-01-27] MEDS: ALBUTEROL SULF 2.5 MG/0.5ML(0.5%) NEB SOLN NEB SCH ×4 (01:07→18:46)
[2018-01-27] MEDS: IPRATROPIUM BROM 0.5 MG/2.5ML INH SOL NEB SCH ×4 (01:07→18:46)
[2018-01-27 05:02] VITALS: BP 111/61
[2018-01-27] MEDS: SODIUM CHLOR 0.9% PF (SALINE LOCK) 10ML VIAL/SYR IV SCH ×3 (05:11→22:00)
[2018-01-27] MEDS: CLINDAMYCIN 300MG IV 50 ML IV SCH ×3 (05:14→22:30)
[2018-01-27] MEDS: GABAPENTIN 400 MG CAP PO SCH ×3 (05:14→22:00)
[2018-01-27] MEDS: InsuLIN REG 1unit/0.01ml Soln (100units/ml) SC SCH ×4 (06:16→22:00)
[2018-01-27] MEDS: glipiZIDE 5 MG TAB PO SCH ×2 (06:16→17:43)
[2018-01-27] MEDS: ACCU-CHEK COMFORT CURVE STRIP VI SCH ×4 (06:16→22:00)
[2018-01-27] MEDS: Glucerna Carbsteady SHAKE Vanilla 8oz PO SCH ×3 (08:00→17:41)
[2018-01-27 09:00] VITALS: BP 127/71
[2018-01-27] MEDS: MULTIPLE VITAMIN TAB PO SCH (09:07)
[2018-01-27] MEDS: cefTRIAXone 1GM/10ml IVPUSH 10 ML IV SCH (09:07)
[2018-01-27] MEDS: ZINC SULFATE 220mg CAP or TAB PO SCH (09:07)
[2018-01-27] MEDS: FAMOTIDINE 20 MG TAB PO SCH ×2 (09:08→22:00)
[2018-01-27] MEDS: ASCORBIC ACID 500 MG TAB PO SCH ×2 (09:08→22:00)
[2018-01-27] MEDS: LISINOPRIL 10 MG TAB PO SCH (09:10)
[2018-01-27] MEDS: HCTZ 25 MG TAB PO SCH (09:12)
[2018-01-27] MEDS: POTASSIUM CHL 20 Meq TABLET PO SCH ×2 (09:12→22:00)
[2018-01-27] MEDS: INSULIN LANTUS (GLARGINE) 1 /0.01ml (100units/ml) SC SCH ×2 (09:13→19:58)
[2018-01-27] MEDS: DAKINS QUARTER STR 0.125% (NaHypochlorite) 473 ML TOPICAL SOL TOP SCH (10:00)
[2018-01-27 11:00] LABS: Basophils # (auto) 0.1 uL; Basophils % (auto) 0.5 % (0.0-2.0); Eosinophils # (auto) 0.2 uL; Eosinophils % (auto) 1.6 % (0.0-7.0); Hematocrit 39.8 % (36.0-46.0); Hemoglobin 13.1 g/dL (12.2-16.2); Lymphocytes # (auto) 1.9 uL; Lymphocytes % (auto) 13.2 % (10.0-50.0); Mean Corpuscular Hemoglobin 30.8 pg (28.0-32.0); Mean Corpuscular Volume 93.5 fL (80.0-100.0); Monocytes % (auto) 7.3 % (0.0-12.0); Neutrophils # (auto) 10.9 uL; Neutrophils % (auto) 77.4 % (37.0-80.0); Nucleated Red Blood Cells % 0.1 %; Platelet Count (auto) 358 10^3/uL (140-450); Red Blood Cells 4.25 10^6/uL (4.0-5.20); Red Cell Distribution Width 13.8 % (11.8-14.3); White Blood Cell 14.1 10^3/uL (4.4-10.8)
[2018-01-27 11:21] LABS: BUN/Creatinine Ratio 7.6; Bilirubin, Total 0.8 mg/dL (0.2-1.0); Calcium 8.4 mg/dL (8.5-10.1); Potassium 3.1 mmol/L (3.5-5.1); Total Protein 8.8 g/dL (6.4-8.2)
[2018-01-27 11:31] LABS: Albumin 1.8 g/dL (3.4-5.0)
[2018-01-27 13:00] VITALS: BP 122/59
[2018-01-27 17:00] VITALS: BP 144/69
[2018-01-27 19:32] VITALS: BP 144/69
[2018-01-27 19:51] LABS: INR 0.96 (0.9-1.15); Partial Thromboplastin Time 28.4 sec (23.78-33.04); Prothrombin Time 10.3 sec (9.27-12.13)
[2018-01-27 22:00] VITALS: BP 106/54
[2018-01-27] MEDS: ATORVASTATIN 20 MG TAB PO SCH (22:00)
[2018-01-27] MEDS ORDERED: LIDOCAINE 1% HCL (LOCAL ANESTH.) INJ 20ML MDV ONE (22:24)
[2018-01-27] MEDS ORDERED: BACITRACIN INJ 50000 UNIT VIAL ONE (22:24)
[2018-01-27] MEDS ORDERED: ETOMIDATE (2MG/ML) 20ML VIAL IV ONE (22:52)
[2018-01-27] MEDS ORDERED: MIDAZOLAM HCL 1MG/1ML-2 ML VIAL ONE ×4 (22:57→23:11)
[2018-01-27] MEDS ORDERED: fentaNYL CITRATE 100 MCG/2 ML VL ONE ×3 (22:57→23:11)
[2018-01-27] MEDS ORDERED: PROPOFOL 10 MG/ML 20 ML IV ONE (22:57)
[2018-01-27] MEDS ORDERED: SUCCINYLCHOLINE CHLORIDE 20 MG/ML 10ML VIAL IV ONE (23:14)
[2018-01-28] MEDS: ONDANSETRON HCL 4 MG/2 ML VIAL IV PRN ×2 (03:43→12:10)
[2018-01-28 05:14] VITALS: BP 92/50
[2018-01-28] MEDS: GABAPENTIN 400 MG CAP PO SCH ×3 (06:36→21:44)
[2018-01-28] MEDS: InsuLIN REG 1unit/0.01ml Soln (100units/ml) SC SCH ×4 (06:36→21:46)
[2018-01-28] MEDS: CLINDAMYCIN 300MG IV 50 ML IV SCH (06:36)
[2018-01-28] MEDS: glipiZIDE 5 MG TAB PO SCH ×2 (06:36→17:47)
[2018-01-28] MEDS: SODIUM CHLOR 0.9% PF (SALINE LOCK) 10ML VIAL/SYR IV SCH ×3 (06:36→21:43)
[2018-01-28] MEDS: ACCU-CHEK COMFORT CURVE STRIP VI SCH ×4 (06:37→21:46)
[2018-01-28] MEDS: ALBUTEROL SULF 2.5 MG/0.5ML(0.5%) NEB SOLN NEB SCH ×4 (06:39→18:50)
[2018-01-28] MEDS: IPRATROPIUM BROM 0.5 MG/2.5ML INH SOL NEB SCH ×4 (06:43→18:50)
[2018-01-28 09:30] VITALS: BP 113/64
[2018-01-28] MEDS: cefTRIAXone 1GM/10ml IVPUSH 10 ML IV SCH (09:39)
[2018-01-28] MEDS: Glucerna Carbsteady SHAKE Vanilla 8oz PO SCH ×3 (09:40→17:48)
[2018-01-28] MEDS: INSULIN LANTUS (GLARGINE) 1 /0.01ml (100units/ml) SC SCH ×2 (09:40→21:43)
[2018-01-28] MEDS: ASCORBIC ACID 500 MG TAB PO SCH ×2 (09:48→21:45)
[2018-01-28] MEDS: FAMOTIDINE 20 MG TAB PO SCH ×2 (09:48→21:44)
[2018-01-28] MEDS: HCTZ 25 MG TAB PO SCH (09:51)
[2018-01-28] MEDS: LISINOPRIL 10 MG TAB PO SCH (09:51)
[2018-01-28] MEDS ORDERED: VANCOMYCIN PER PHARMACY 0 MG IV SCH (10:45)
[2018-01-28] MEDS: HYDROcodone-ACET 5/325MG TAB PO PRN ×3 (12:10→22:12)
[2018-01-28] MEDS: VANCOMYCIN 1GM/250ML 250 ML IV SCH ×2 (12:26→21:15)
[2018-01-28] MEDS: POTASSIUM CHL 20 Meq TABLET PO SCH ×2 (12:43→21:44)
[2018-01-28] MEDS: MULTIPLE VITAMIN TAB PO SCH (12:43)
[2018-01-28] MEDS: DAKINS QUARTER STR 0.125% (NaHypochlorite) 473 ML TOPICAL SOL TOP SCH (12:44)
[2018-01-28] MEDS: ZINC SULFATE 220mg CAP or TAB PO SCH (12:44)
[2018-01-28 13:00] VITALS: BP 120/60
[2018-01-28 16:34] VITALS: BP 120/73
[2018-01-28] MEDS: ATORVASTATIN 20 MG TAB PO SCH (21:44)
[2018-01-28 22:00] VITALS: BP 133/69
[2018-01-29] MEDS: IPRATROPIUM BROM 0.5 MG/2.5ML INH SOL NEB SCH ×4 (00:07→19:33)
[2018-01-29] MEDS: ALBUTEROL SULF 2.5 MG/0.5ML(0.5%) NEB SOLN NEB SCH ×4 (00:07→19:33)
[2018-01-29 04:59] VITALS: BP 103/49
[2018-01-29] MEDS: VANCOMYCIN 1GM/250ML 250 ML IV SCH ×3 (05:28→20:00)
[2018-01-29] MEDS: HYDROcodone-ACET 5/325MG TAB PO PRN ×3 (05:39→16:40)
[2018-01-29] MEDS: SODIUM CHLOR 0.9% PF (SALINE LOCK) 10ML VIAL/SYR IV SCH ×3 (05:57→22:16)
[2018-01-29] MEDS: GABAPENTIN 400 MG CAP PO SCH ×3 (05:57→22:17)
[2018-01-29] MEDS: glipiZIDE 5 MG TAB PO SCH (05:58)
[2018-01-29] MEDS: InsuLIN REG 1unit/0.01ml Soln (100units/ml) SC SCH ×4 (05:59→22:19)
[2018-01-29] MEDS: ACCU-CHEK COMFORT CURVE STRIP VI SCH ×4 (05:59→22:21)
[2018-01-29 06:23] LABS: Calcium 8.6 mg/dL (8.5-10.1); Potassium 3.8 mmol/L (3.5-5.1)
[2018-01-29] MEDS: Glucerna Carbsteady SHAKE Vanilla 8oz PO SCH ×3 (08:18→18:00)
[2018-01-29] MEDS: INSULIN LANTUS (GLARGINE) 1 /0.01ml (100units/ml) SC SCH ×4 (08:18→22:21)
[2018-01-29] MEDS: cefTRIAXone 1GM/10ml IVPUSH 10 ML IV SCH (08:29)
[2018-01-29 09:00] VITALS: BP 124/70
[2018-01-29] MEDS: DAKINS QUARTER STR 0.125% (NaHypochlorite) 473 ML TOPICAL SOL TOP SCH (10:00)
[2018-01-29] MEDS: FAMOTIDINE 20 MG TAB PO SCH ×2 (11:07→22:18)
[2018-01-29] MEDS: ASCORBIC ACID 500 MG TAB PO SCH ×2 (11:07→22:18)
[2018-01-29] MEDS: MULTIPLE VITAMIN TAB PO SCH (11:07)
[2018-01-29] MEDS: ZINC SULFATE 220mg CAP or TAB PO SCH (11:08)
[2018-01-29] MEDS: POTASSIUM CHL 20 Meq TABLET PO SCH ×2 (11:08→22:17)
[2018-01-29] MEDS: HCTZ 25 MG TAB PO SCH (11:09)
[2018-01-29] MEDS: LISINOPRIL 10 MG TAB PO SCH (11:11)
[2018-01-29 13:00] VITALS: BP 136/75
[2018-01-29 17:00] VITALS: BP 143/81
[2018-01-29] MEDS ORDERED: KETOROLAC TROMETH 30 MG/ML 1ML VIAL IV ONE (17:30)
[2018-01-29] MEDS ORDERED: KETOROLAC TROMETH 30 MG/ML 1ML VIAL IV PRN (17:30)
[2018-01-29 21:47] VITALS: BP 132/65
[2018-01-29] MEDS: ATORVASTATIN 20 MG TAB PO SCH (22:17)
[2018-01-30] MEDS: ALBUTEROL SULF 2.5 MG/0.5ML(0.5%) NEB SOLN NEB SCH ×4 (00:40→20:15)
[2018-01-30] MEDS: IPRATROPIUM BROM 0.5 MG/2.5ML INH SOL NEB SCH ×4 (00:40→20:14)
[2018-01-30] MEDS: VANCOMYCIN 1GM/250ML 250 ML IV SCH (05:34)
[2018-01-30 05:44] VITALS: BP 146/78
[2018-01-30] MEDS: SODIUM CHLOR 0.9% PF (SALINE LOCK) 10ML VIAL/SYR IV SCH ×3 (07:02→22:09)
[2018-01-30] MEDS: InsuLIN REG 1unit/0.01ml Soln (100units/ml) SC SCH ×4 (07:03→22:45)
[2018-01-30] MEDS: GABAPENTIN 400 MG CAP PO SCH ×3 (07:03→22:09)
[2018-01-30] MEDS: INSULIN LANTUS (GLARGINE) 1 /0.01ml (100units/ml) SC SCH ×2 (07:04→22:45)
[2018-01-30] MEDS: ACCU-CHEK COMFORT CURVE STRIP VI SCH ×4 (07:04→22:45)
[2018-01-30 07:20] LABS: Basophils # (auto) 0 uL; Basophils % (auto) 0.3 % (0.0-2.0); Eosinophils # (auto) 0.4 uL; Eosinophils % (auto) 3.9 % (0.0-7.0); Hematocrit 35.2 % (36.0-46.0); Hemoglobin 11.6 g/dL (12.2-16.2); Lymphocytes # (auto) 2.5 uL; Lymphocytes % (auto) 23.8 % (10.0-50.0); Mean Corpuscular Hgb Conc. 32.9 g/dL (32.0-36.0); Mean Corpuscular Volume 94.3 fL (80.0-100.0); Monocytes # (auto) 0.7 uL; Monocytes % (auto) 7.1 % (0.0-12.0); Neutrophils # (auto) 6.7 uL; Neutrophils % (auto) 64.9 % (37.0-80.0); Nucleated Red Blood Cells % 0.1 %; Platelet Count (auto) 406 10^3/uL (140-450); Red Blood Cells 3.73 10^6/uL (4.0-5.20); Red Cell Distribution Width 13.9 % (11.8-14.3); White Blood Cell 10.3 10^3/uL (4.4-10.8)
[2018-01-30 07:29] LABS: BUN/Creatinine Ratio 12.1; Calcium 8.9 mg/dL (8.5-10.1); Potassium 4.2 mmol/L (3.5-5.1)
[2018-01-30] MEDS: Glucerna Carbsteady SHAKE Vanilla 8oz PO SCH ×3 (08:00→18:00)
[2018-01-30] MEDS ORDERED: DEXTROSE (50%) 50ML SYRG IV PRN (08:15)
[2018-01-30 09:00] VITALS: BP 143/72
[2018-01-30] MEDS: cefTRIAXone 1GM/10ml IVPUSH 10 ML IV SCH (09:11)
[2018-01-30] MEDS: POTASSIUM CHL 20 Meq TABLET PO SCH ×2 (09:21→22:08)
[2018-01-30] MEDS: ASCORBIC ACID 500 MG TAB PO SCH ×2 (09:22→22:08)
[2018-01-30] MEDS: FAMOTIDINE 20 MG TAB PO SCH ×2 (09:22→22:08)
[2018-01-30] MEDS: LISINOPRIL 10 MG TAB PO SCH (09:26)
[2018-01-30] MEDS: MULTIPLE VITAMIN TAB PO SCH (09:26)
[2018-01-30] MEDS: HCTZ 25 MG TAB PO SCH (09:28)
[2018-01-30] MEDS: ZINC SULFATE 220mg CAP or TAB PO SCH (09:30)
[2018-01-30] MEDS: DAKINS QUARTER STR 0.125% (NaHypochlorite) 473 ML TOPICAL SOL TOP SCH (09:30)
[2018-01-30 13:00] VITALS: BP 156/91
[2018-01-30] MEDS: HYDROcodone-ACET 10/325MG TAB PO PRN ×2 (15:02→18:38)
[2018-01-30 17:00] VITALS: BP 163/85
[2018-01-30] MEDS ORDERED: VANCOMYCIN 1,250 MG in D5W 5% 250 ML IV SCH (17:00)
[2018-01-30] MEDS ORDERED: LABETALOL HCL 5 MG/ML ML 20ML VIAL IV PRN (18:00)
[2018-01-30] MEDS: VANCOMYCIN 1,250 MG in D5W 5% 250 ML IV SCH (19:48)
[2018-01-30 22:00] VITALS: BP 127/72
[2018-01-30] MEDS: ATORVASTATIN 20 MG TAB PO SCH (22:08)
[2018-01-31] MEDS: ALBUTEROL SULF 2.5 MG/0.5ML(0.5%) NEB SOLN NEB SCH ×4 (00:27→18:55)
[2018-01-31] MEDS: IPRATROPIUM BROM 0.5 MG/2.5ML INH SOL NEB SCH ×4 (00:27→18:55)
[2018-01-31 04:23] VITALS: BP 127/72
[2018-01-31 05:16] VITALS: BP 129/76
[2018-01-31] MEDS: GABAPENTIN 400 MG CAP PO SCH ×3 (05:36→21:28)
[2018-01-31] MEDS: HYDROcodone-ACET 10/325MG TAB PO PRN ×4 (05:36→21:45)
[2018-01-31] MEDS: SODIUM CHLOR 0.9% PF (SALINE LOCK) 10ML VIAL/SYR IV SCH ×3 (05:46→21:29)
[2018-01-31] MEDS: ACCU-CHEK COMFORT CURVE STRIP VI SCH ×4 (06:12→21:44)
[2018-01-31] MEDS: INSULIN LANTUS (GLARGINE) 1 /0.01ml (100units/ml) SC SCH ×2 (06:36→21:45)
[2018-01-31] MEDS: InsuLIN REG 1unit/0.01ml Soln (100units/ml) SC SCH ×4 (06:36→21:44)
[2018-01-31 06:51] LABS: Basophils # (auto) 0.1 uL; Eosinophils # (auto) 0.3 uL; Eosinophils % (auto) 2.7 % (0.0-7.0); Mean Corpuscular Hgb Conc. 33.1 g/dL (32.0-36.0); Monocytes # (auto) 0.7 uL; Nucleated Red Blood Cells % 0.1 %; Red Blood Cells 4.01 10^6/uL (4.0-5.20); White Blood Cell 11.9 10^3/uL (4.4-10.8)
[2018-01-31 06:53] LABS: Basophils % (auto) 0.9 % (0.0-2.0); Hematocrit 37.7 % (36.0-46.0); Hemoglobin 12.5 g/dL (12.2-16.2); Lymphocytes # (auto) 2.7 uL; Lymphocytes % (auto) 22.6 % (10.0-50.0); Mean Corpuscular Hemoglobin 31.1 pg (28.0-32.0); Monocytes % (auto) 6.3 % (0.0-12.0); Neutrophils % (auto) 67.5 % (37.0-80.0); Platelet Count (auto) 453 10^3/uL (140-450); Red Cell Distribution Width 13.8 % (11.8-14.3)
[2018-01-31 07:08] LABS: BUN/Creatinine Ratio 15.5; Calcium 9.1 mg/dL (8.5-10.1); Potassium 4.4 mmol/L (3.5-5.1)
[2018-01-31] MEDS: Glucerna Carbsteady SHAKE Vanilla 8oz PO SCH ×3 (08:41→18:11)
[2018-01-31] MEDS: VANCOMYCIN 1,250 MG in D5W 5% 250 ML IV SCH ×2 (08:45→20:01)
[2018-01-31] MEDS: cefTRIAXone 1GM/10ml IVPUSH 10 ML IV SCH (08:45)
[2018-01-31 09:00] VITALS: BP 101/50
[2018-01-31] MEDS: DAKINS QUARTER STR 0.125% (NaHypochlorite) 473 ML TOPICAL SOL TOP SCH (09:22)
[2018-01-31] MEDS: ZINC SULFATE 220mg CAP or TAB PO SCH (09:33)
[2018-01-31] MEDS: MULTIPLE VITAMIN TAB PO SCH (09:34)
[2018-01-31] MEDS: FAMOTIDINE 20 MG TAB PO SCH ×2 (09:34→21:28)
[2018-01-31] MEDS: ASCORBIC ACID 500 MG TAB PO SCH ×2 (09:34→21:29)
[2018-01-31] MEDS: POTASSIUM CHL 20 Meq TABLET PO SCH ×2 (09:34→21:28)
[2018-01-31] MEDS: HCTZ 25 MG TAB PO SCH (09:34)
[2018-01-31] MEDS: LISINOPRIL 10 MG TAB PO SCH (09:35)
[2018-01-31 13:28] VITALS: BP 110/54
[2018-01-31 17:05] VITALS: BP 131/79
[2018-01-31] MEDS: ATORVASTATIN 20 MG TAB PO SCH (21:28)
[2018-01-31 22:00] VITALS: BP 117/80
[2018-02-01] MEDS: ALBUTEROL SULF 2.5 MG/0.5ML(0.5%) NEB SOLN NEB SCH ×5 (00:37→23:47)
[2018-02-01] MEDS: IPRATROPIUM BROM 0.5 MG/2.5ML INH SOL NEB SCH ×5 (00:37→23:47)
[2018-02-01 05:32] VITALS: BP 108/66
[2018-02-01] MEDS: SODIUM CHLOR 0.9% PF (SALINE LOCK) 10ML VIAL/SYR IV SCH ×3 (06:26→22:26)
[2018-02-01] MEDS: INSULIN LANTUS (GLARGINE) 1 /0.01ml (100units/ml) SC SCH ×2 (06:27→22:27)
[2018-02-01] MEDS: ACCU-CHEK COMFORT CURVE STRIP VI SCH ×4 (06:27→22:26)
[2018-02-01] MEDS: GABAPENTIN 400 MG CAP PO SCH ×3 (06:27→21:34)
[2018-02-01] MEDS: InsuLIN REG 1unit/0.01ml Soln (100units/ml) SC SCH ×4 (06:28→22:27)
[2018-02-01 08:00] VITALS: BP 110/42
[2018-02-01] MEDS: Glucerna Carbsteady SHAKE Vanilla 8oz PO SCH ×3 (08:00→17:24)
[2018-02-01 08:11] LABS: Potassium 4.7 mmol/L (3.5-5.1)
[2018-02-01 08:17] LABS: Basophils # (auto) 0.1 uL; Eosinophils # (auto) 0.2 uL; Lymphocytes # (auto) 2.8 uL; Monocytes # (auto) 0.7 uL; Red Blood Cells 4.03 10^6/uL (4.0-5.20)
[2018-02-01 08:17] LABS: BUN/Creatinine Ratio 16.7
[2018-02-01 08:19] LABS: Basophils % (auto) 0.8 % (0.0-2.0); Hematocrit 38.2 % (36.0-46.0); Hemoglobin 12.5 g/dL (12.2-16.2); Lymphocytes % (auto) 22.4 % (10.0-50.0); Mean Corpuscular Hemoglobin 31.1 pg (28.0-32.0); Mean Corpuscular Hgb Conc. 32.8 g/dL (32.0-36.0); Mean Corpuscular Volume 94.8 fL (80.0-100.0); Monocytes % (auto) 5.6 % (0.0-12.0); Neutrophils # (auto) 8.6 uL; Neutrophils % (auto) 69.2 % (37.0-80.0); Nucleated Red Blood Cells % 0.1 %; Platelet Count (auto) 481 10^3/uL (140-450); Red Cell Distribution Width 14.5 % (11.8-14.3); White Blood Cell 12.5 10^3/uL (4.4-10.8)
[2018-02-01 09:00] VITALS: BP 110/42
[2018-02-01] MEDS: ZINC SULFATE 220mg CAP or TAB PO SCH (09:28)
[2018-02-01] MEDS: ASCORBIC ACID 500 MG TAB PO SCH ×2 (09:28→21:34)
[2018-02-01] MEDS: cefTRIAXone 1GM/10ml IVPUSH 10 ML IV SCH (09:28)
[2018-02-01] MEDS: POTASSIUM CHL 20 Meq TABLET PO SCH ×2 (09:28→21:34)
[2018-02-01] MEDS: FAMOTIDINE 20 MG TAB PO SCH ×2 (09:29→21:34)
[2018-02-01] MEDS: HCTZ 25 MG TAB PO SCH (09:30)
[2018-02-01] MEDS: MULTIPLE VITAMIN TAB PO SCH (09:31)
[2018-02-01] MEDS: LISINOPRIL 10 MG TAB PO SCH (09:31)
[2018-02-01] MEDS: DAKINS QUARTER STR 0.125% (NaHypochlorite) 473 ML TOPICAL SOL TOP SCH (09:32)
[2018-02-01] MEDS: VANCOMYCIN 1,250 MG in D5W 5% 250 ML IV SCH ×2 (09:44→20:21)
[2018-02-01] MEDS ORDERED: IOHEXOL 300 MG/ML 100ML BOTTLE IJ ONE (09:57)
[2018-02-01] MEDS ORDERED: HYDROcodone-ACET 5/325MG TAB PO PRN (10:00)
[2018-02-01] MEDS: HYDROcodone-ACET 10/325MG TAB PO PRN ×2 (11:50→21:34)
[2018-02-01 13:00] VITALS: BP 113/70
[2018-02-01 17:00] VITALS: BP 113/72
[2018-02-01] MEDS: Pro-Stat SF 30ml Vanilla PO SCH (17:24)
[2018-02-01] MEDS: METHOCARBAMOL 500 MG TAB PO SCH (17:26)
[2018-02-01] MEDS: ATORVASTATIN 20 MG TAB PO SCH (21:34)
[2018-02-01 22:00] VITALS: BP 162/79
[2018-02-02 05:15] VITALS: BP 124/64
[2018-02-02] MEDS: METHOCARBAMOL 500 MG TAB PO SCH ×3 (06:43→20:40)
[2018-02-02] MEDS: ACCU-CHEK COMFORT CURVE STRIP VI SCH ×4 (06:43→22:15)
[2018-02-02] MEDS: GABAPENTIN 400 MG CAP PO SCH ×3 (06:43→20:40)
[2018-02-02] MEDS: SODIUM CHLOR 0.9% PF (SALINE LOCK) 10ML VIAL/SYR IV SCH ×3 (06:43→20:41)
[2018-02-02] MEDS: InsuLIN REG 1unit/0.01ml Soln (100units/ml) SC SCH ×4 (06:44→22:17)
[2018-02-02] MEDS: INSULIN LANTUS (GLARGINE) 1 /0.01ml (100units/ml) SC SCH ×2 (06:44→22:16)
[2018-02-02 07:57] LABS: Basophils # (auto) 0.1 uL; Lymphocytes # (auto) 2.8 uL; Monocytes # (auto) 0.7 uL; Neutrophils # (auto) 7.4 uL
[2018-02-02 07:59] LABS: Basophils % (auto) 0.9 % (0.0-2.0); Eosinophils # (auto) 0.3 uL; Eosinophils % (auto) 2.5 % (0.0-7.0); Hematocrit 36.5 % (36.0-46.0); Hemoglobin 11.9 g/dL (12.2-16.2); Lymphocytes % (auto) 25.1 % (10.0-50.0); Mean Corpuscular Hemoglobin 30.9 pg (28.0-32.0); Mean Corpuscular Hgb Conc. 32.7 g/dL (32.0-36.0); Mean Corpuscular Volume 94.3 fL (80.0-100.0); Monocytes % (auto) 6.1 % (0.0-12.0); Neutrophils % (auto) 65.4 % (37.0-80.0); Nucleated Red Blood Cells % 0.1 %; Platelet Count (auto) 502 10^3/uL (140-450); Red Blood Cells 3.87 10^6/uL (4.0-5.20); Red Cell Distribution Width 14.6 % (11.8-14.3); White Blood Cell 11.2 10^3/uL (4.4-10.8)
[2018-02-02 08:00] VITALS: BP 116/68
[2018-02-02] MEDS: IPRATROPIUM BROM 0.5 MG/2.5ML INH SOL NEB SCH ×3 (08:00→19:08)
[2018-02-02] MEDS: ALBUTEROL SULF 2.5 MG/0.5ML(0.5%) NEB SOLN NEB SCH ×2 (08:00→19:07)
[2018-02-02 08:10] LABS: BUN/Creatinine Ratio 17.8; Calcium 9.1 mg/dL (8.5-10.1); Potassium 4.7 mmol/L (3.5-5.1)
[2018-02-02] MEDS: VANCOMYCIN 1,250 MG in D5W 5% 250 ML IV SCH ×2 (09:24→20:30)
[2018-02-02] MEDS: cefTRIAXone 1GM/10ml IVPUSH 10 ML IV SCH (09:25)
[2018-02-02] MEDS: Glucerna Carbsteady SHAKE Vanilla 8oz PO SCH ×3 (09:25→17:53)
[2018-02-02] MEDS: Pro-Stat SF 30ml Vanilla PO SCH ×2 (09:25→17:53)
[2018-02-02] MEDS: HYDROcodone-ACET 10/325MG TAB PO PRN ×2 (09:27→15:25)
[2018-02-02] MEDS: DAKINS QUARTER STR 0.125% (NaHypochlorite) 473 ML TOPICAL SOL TOP SCH (10:00)
[2018-02-02] MEDS: FAMOTIDINE 20 MG TAB PO SCH ×2 (10:22→20:40)
[2018-02-02] MEDS: POTASSIUM CHL 20 Meq TABLET PO SCH ×2 (10:22→20:40)
[2018-02-02] MEDS: ZINC SULFATE 220mg CAP or TAB PO SCH (10:22)
[2018-02-02] MEDS: ASCORBIC ACID 500 MG TAB PO SCH ×2 (10:23→20:40)
[2018-02-02] MEDS: LISINOPRIL 10 MG TAB PO SCH (10:23)
[2018-02-02] MEDS: HCTZ 25 MG TAB PO SCH (10:23)
[2018-02-02] MEDS: MULTIPLE VITAMIN TAB PO SCH (10:24)
[2018-02-02 13:14] VITALS: BP 119/77
[2018-02-02 17:34] VITALS: BP 147/73
[2018-02-02] MEDS: ATORVASTATIN 20 MG TAB PO SCH (20:40)
[2018-02-02 22:00] VITALS: BP 133/86
[2018-02-03] MEDS: ALBUTEROL SULF 2.5 MG/0.5ML(0.5%) NEB SOLN NEB SCH ×4 (01:06→18:09)
[2018-02-03] MEDS: IPRATROPIUM BROM 0.5 MG/2.5ML INH SOL NEB SCH ×4 (01:06→18:09)
[2018-02-03 05:00] VITALS: BP 124/70
[2018-02-03] MEDS: SODIUM CHLOR 0.9% PF (SALINE LOCK) 10ML VIAL/SYR IV SCH ×3 (05:38→21:04)
[2018-02-03] MEDS: GABAPENTIN 400 MG CAP PO SCH ×3 (05:39→21:01)
[2018-02-03] MEDS: INSULIN LANTUS (GLARGINE) 1 /0.01ml (100units/ml) SC SCH ×2 (05:39→21:15)
[2018-02-03] MEDS: METHOCARBAMOL 500 MG TAB PO SCH ×3 (05:39→21:03)
[2018-02-03] MEDS: ACCU-CHEK COMFORT CURVE STRIP VI SCH ×4 (05:40→21:16)
[2018-02-03] MEDS: InsuLIN REG 1unit/0.01ml Soln (100units/ml) SC SCH ×4 (05:40→21:16)
[2018-02-03 07:38] LABS: Eosinophils # (auto) 0.2 uL; Hemoglobin 12.2 g/dL (12.2-16.2); Lymphocytes # (auto) 3.1 uL; Monocytes # (auto) 0.6 uL
[2018-02-03 07:40] LABS: Basophils # (auto) 0 uL; Basophils % (auto) 0.4 % (0.0-2.0); Eosinophils % (auto) 1.7 % (0.0-7.0); Hematocrit 36.6 % (36.0-46.0); Lymphocytes % (auto) 29.6 % (10.0-50.0); Mean Corpuscular Hemoglobin 31.3 pg (28.0-32.0); Mean Corpuscular Hgb Conc. 33.3 g/dL (32.0-36.0); Mean Corpuscular Volume 93.8 fL (80.0-100.0); Monocytes % (auto) 5.3 % (0.0-12.0); Neutrophils # (auto) 6.6 uL; Nucleated Red Blood Cells % 0.2 %; Platelet Count (auto) 494 10^3/uL (140-450); Red Cell Distribution Width 14.3 % (11.8-14.3); White Blood Cell 10.5 10^3/uL (4.4-10.8)
[2018-02-03 07:51] LABS: Potassium 4.7 mmol/L (3.5-5.1)
[2018-02-03] MEDS: VANCOMYCIN 1,250 MG in D5W 5% 250 ML IV SCH ×2 (08:53→21:04)
[2018-02-03] MEDS: Glucerna Carbsteady SHAKE Vanilla 8oz PO SCH ×2 (08:53→12:08)
[2018-02-03] MEDS: Pro-Stat SF 30ml Vanilla PO SCH ×2 (08:54→18:07)
[2018-02-03] MEDS: HYDROcodone-ACET 10/325MG TAB PO PRN ×2 (08:54→21:02)
[2018-02-03] MEDS: cefTRIAXone 1GM/10ml IVPUSH 10 ML IV SCH (08:54)
[2018-02-03 09:03] VITALS: BP 104/52
[2018-02-03] MEDS: LISINOPRIL 10 MG TAB PO SCH (10:00)
[2018-02-03] MEDS: DAKINS QUARTER STR 0.125% (NaHypochlorite) 473 ML TOPICAL SOL TOP SCH (10:00)
[2018-02-03] MEDS: HCTZ 25 MG TAB PO SCH (10:24)
[2018-02-03] MEDS: POTASSIUM CHL 20 Meq TABLET PO SCH ×2 (10:24→21:02)
[2018-02-03] MEDS: MULTIPLE VITAMIN TAB PO SCH (10:24)
[2018-02-03] MEDS: ZINC SULFATE 220mg CAP or TAB PO SCH (10:24)
[2018-02-03] MEDS: FAMOTIDINE 20 MG TAB PO SCH ×2 (10:25→21:02)
[2018-02-03] MEDS: ASCORBIC ACID 500 MG TAB PO SCH ×2 (10:25→21:01)
[2018-02-03 12:01] VITALS: BP 164/80
[2018-02-03 17:22] VITALS: BP 124/77
[2018-02-03] MEDS: ATORVASTATIN 20 MG TAB PO SCH (21:03)
[2018-02-03 22:00] VITALS: BP 140/78
[2018-02-04] MEDS: IPRATROPIUM BROM 0.5 MG/2.5ML INH SOL NEB SCH ×4 (00:02→18:50)
[2018-02-04] MEDS: ALBUTEROL SULF 2.5 MG/0.5ML(0.5%) NEB SOLN NEB SCH ×4 (00:02→18:50)
[2018-02-04 05:00] VITALS: BP 130/65
[2018-02-04] MEDS: GABAPENTIN 400 MG CAP PO SCH ×2 (06:31→13:30)
[2018-02-04] MEDS: METHOCARBAMOL 500 MG TAB PO SCH ×2 (06:31→13:30)
[2018-02-04] MEDS: SODIUM CHLOR 0.9% PF (SALINE LOCK) 10ML VIAL/SYR IV SCH ×2 (06:31→15:24)
[2018-02-04] MEDS: InsuLIN REG 1unit/0.01ml Soln (100units/ml) SC SCH ×3 (06:32→17:00)
[2018-02-04] MEDS: INSULIN LANTUS (GLARGINE) 1 /0.01ml (100units/ml) SC SCH (06:32)
[2018-02-04] MEDS: ACCU-CHEK COMFORT CURVE STRIP VI SCH ×3 (06:48→17:00)
[2018-02-04] MEDS: Pro-Stat SF 30ml Vanilla PO SCH ×2 (08:00→18:00)
[2018-02-04 08:31] VITALS: BP 141/69
[2018-02-04] MEDS: cefTRIAXone 1GM/10ml IVPUSH 10 ML IV SCH (09:32)
[2018-02-04] MEDS: ZINC SULFATE 220mg CAP or TAB PO SCH (09:33)
[2018-02-04] MEDS: ASCORBIC ACID 500 MG TAB PO SCH (09:33)
[2018-02-04] MEDS: FAMOTIDINE 20 MG TAB PO SCH (09:33)
[2018-02-04] MEDS: POTASSIUM CHL 20 Meq TABLET PO SCH (09:33)
[2018-02-04] MEDS: LISINOPRIL 10 MG TAB PO SCH (09:33)
[2018-02-04] MEDS: MULTIPLE VITAMIN TAB PO SCH (09:33)
[2018-02-04] MEDS: DAKINS QUARTER STR 0.125% (NaHypochlorite) 473 ML TOPICAL SOL TOP SCH (09:34)
[2018-02-04] MEDS: HCTZ 25 MG TAB PO SCH (09:34)
[2018-02-04] MEDS ORDERED: VANCOMYCIN 1GM/250ML 250 ML IV SCH (11:00)
[2018-02-04 12:54] VITALS: BP 107/64
[2018-02-04] MEDS: HYDROcodone-ACET 10/325MG TAB PO PRN (13:31)
[2018-02-04 16:37] VITALS: BP 122/85
== END 2018-02-04 21:22 | disposition home health service (06) | DRG 710 ==
LOC: ER 14:17 → EDBD 14:17 → TELE 14:18 → TELE-WESTW 20:53
PROVIDERS: ADMIT Internal Medicine; ATTEND Internal Medicine Pulmonary Disease
PROC: 0JBQ0ZZ Excision of Right Foot Subcutaneous Tissue and Fascia, Open Approach (ICD-10-PCS; 2018-01-25)
PROC: 0J9Q0ZZ Drainage of Right Foot Subcutaneous Tissue and Fascia, Open Approach (ICD-10-PCS; 2018-01-27)
PROC: 0KBV0ZZ Excision of Right Foot Muscle, Open Approach (ICD-10-PCS; principal; 2018-01-27 22:52)
PROC: 02HV33Z Insertion of Infusion Device into Superior Vena Cava, Percutaneous Approach (ICD-10-PCS; 2018-01-29)
DX: A41.02 Sepsis due to Methicillin resistant Staphylococcus aureus (principal); J96.00 Acute respiratory failure, unspecified whether with hypoxia or hypercapnia; E43 Unspecified severe protein-calorie malnutrition; E10.21 Type 1 diabetes mellitus with diabetic nephropathy; E10.40 Type 1 diabetes mellitus with diabetic neuropathy, unspecified; E66.01 Morbid (severe) obesity due to excess calories; L03.115 Cellulitis of right lower limb; E10.22 Type 1 diabetes mellitus with diabetic chronic kidney disease; E10.621 Type 1 diabetes mellitus with foot ulcer; E87.1 Hypo-osmolality and hyponatremia; E87.6 Hypokalemia; E87.8 Other disorders of electrolyte and fluid balance, not elsewhere classified; I12.9 Hypertensive chronic kidney disease with stage 1 through stage 4 chronic kidney disease, or unspecified chronic kidney disease; M54.30 Sciatica, unspecified side; M19.90 Unspecified osteoarthritis, unspecified site; L97.519 Non-pressure chronic ulcer of other part of right foot with unspecified severity; N18.2 Chronic kidney disease, stage 2 (mild); B35.1 Tinea unguium; B35.3 Tinea pedis; E10.42 Type 1 diabetes mellitus with diabetic polyneuropathy; E10.65 Type 1 diabetes mellitus with hyperglycemia; E10.52 Type 1 diabetes mellitus with diabetic peripheral angiopathy with gangrene; F17.210 Nicotine dependence, cigarettes, uncomplicated; J45.909 Unspecified asthma, uncomplicated; S40.011A Contusion of right shoulder, initial encounter; W18.39XA Other fall on same level, initial encounter; Y93.89 Activity, other specified; Y92.89 Other specified places as the place of occurrence of the external cause; Z79.4 Long term (current) use of insulin; Z82.49 Family history of ischemic heart disease and other diseases of the circulatory system; Z83.3 Family history of diabetes mellitus; Z79.899 Other long term (current) drug therapy; Z91.012 Allergy to eggs; Z91.013 Allergy to seafood; Z88.8 Allergy status to other drugs, medicaments and biological substances; Z91.018 Allergy to other foods; Z84.89 Family history of other specified conditions; Z68.43 Body mass index [BMI] 50.0-59.9, adult
CPT/HCPCS: 36415; 71250; 73030; 73060; 73502; 73590; 73600; 73630; 74176; 78315; 80048; 80053; 80202; 81001; 82962; 83036; 83605; 83880; 84443; 84702; 85025; 85610; 85652; 85730; 86141; 87040; 87070; 87075; 87077; 87081; 87086; 87186; 87205; 93306; 93925; 93926; 93971; 94640; 94761; 96361; 96365; 96375; A6257; J0330; J0696; J1815; J1885; J2001; J2250; J2405; J2704; J3480; J3490; J7060

== ENCOUNTER 2018-02-11 12:35 | Emergency (ER) | payer MEDICAID ==
[~2018-02-11] VITALS: Ht 170.2 cm; Wt 136.1 kg
[~2018-02-11 12:35] MED LIST changes: -INSLANTI SC; -LEVO500T21 PO
[2018-02-11 15:41] LABS: Basophils # (auto) 0.1 uL; Eosinophils # (auto) 0.2 uL; Eosinophils % (auto) 2.4 % (0.0-7.0); Hemoglobin 12.5 g/dL (12.2-16.2); Lymphocytes # (auto) 2.5 uL; Lymphocytes % (auto) 30.4 % (10.0-50.0); Mean Corpuscular Hemoglobin 30.9 pg (28.0-32.0); Mean Corpuscular Hgb Conc. 32.9 g/dL (32.0-36.0); Mean Corpuscular Volume 93.9 fL (80.0-100.0); Monocytes # (auto) 0.6 uL; Monocytes % (auto) 7.8 % (0.0-12.0); Neutrophils # (auto) 4.8 uL; Neutrophils % (auto) 58.4 % (37.0-80.0); Nucleated Red Blood Cells % 0.2 %; Platelet Count (auto) 430 10^3/uL (140-450); Red Blood Cells 4.05 10^6/uL (4.0-5.20); Red Cell Distribution Width 14.1 % (11.8-14.3); White Blood Cell 8.2 10^3/uL (4.4-10.8)
[2018-02-11 15:51] LABS: INR 0.93 (0.9-1.15); Partial Thromboplastin Time 25.1 sec (23.78-33.04)
[2018-02-11 17:03] VITALS: BP 145/91
== END 2018-02-11 17:25 | disposition home or self-care (01) ==
LOC: ER 12:35
DX: Z45.2 Encounter for adjustment and management of vascular access device (principal); E11.9 Type 2 diabetes mellitus without complications; I10 Essential (primary) hypertension; F17.210 Nicotine dependence, cigarettes, uncomplicated; F12.10 Cannabis abuse, uncomplicated; Z91.012 Allergy to eggs; Z91.02 Food additives allergy status; Z91.013 Allergy to seafood
CPT/HCPCS: 36415; 85025; 85610; 85730

== ENCOUNTER 2018-02-14 16:18 | Emergency (ER) | payer MEDICAID ==
[~2018-02-14] VITALS: Ht 170.2 cm; Wt 136.1 kg
[2018-02-14 18:50] VITALS: BP 140/69
[2018-02-14] MEDS ORDERED: ONDANSETRON HCL 4 MG/2 ML VIAL IV ONE (19:00)
[2018-02-14] MEDS ORDERED: MORPHINE SULFATE 4 MG/ML SYR/VIAL IV ONE (19:00)
[2018-02-14] MEDS ORDERED: HYDROmorphone HCL 2 MG/ML VL IV ONE ×2 (19:15)
== END 2018-02-14 19:15 | disposition home or self-care (01) ==
LOC: ER 16:18
DX: L08.89 Other specified local infections of the skin and subcutaneous tissue (principal); R11.0 Nausea; M19.90 Unspecified osteoarthritis, unspecified site; J45.909 Unspecified asthma, uncomplicated; E11.9 Type 2 diabetes mellitus without complications; E78.5 Hyperlipidemia, unspecified; I10 Essential (primary) hypertension; Z88.8 Allergy status to other drugs, medicaments and biological substances; Z91.012 Allergy to eggs; Z91.013 Allergy to seafood; Z91.018 Allergy to other foods
CPT/HCPCS: 96374; 96375; 99284; J1170; J2405

== ENCOUNTER 2018-02-23 14:38 | Emergency (ER) | payer MEDICAID ==
[~2018-02-23] VITALS: Ht 170.2 cm; Wt 136.1 kg
[2018-02-23] MEDS ORDERED: HYDROcodone-ACET 10/325MG TAB PO ONE (19:30)
[2018-02-23 19:36] VITALS: BP 136/75
== END 2018-02-23 19:56 | disposition home or self-care (01) ==
LOC: ER 14:38
DX: R22.9 Localized swelling, mass and lump, unspecified (principal); Z45.2 Encounter for adjustment and management of vascular access device; M19.90 Unspecified osteoarthritis, unspecified site; J45.909 Unspecified asthma, uncomplicated; E11.9 Type 2 diabetes mellitus without complications; E78.5 Hyperlipidemia, unspecified; I10 Essential (primary) hypertension; F17.210 Nicotine dependence, cigarettes, uncomplicated; Z88.8 Allergy status to other drugs, medicaments and biological substances; Z88.5 Allergy status to narcotic agent; Z91.012 Allergy to eggs; Z91.013 Allergy to seafood; Z91.018 Allergy to other foods; Z79.84 Long term (current) use of oral hypoglycemic drugs; Z79.899 Other long term (current) drug therapy

== ENCOUNTER 2018-02-28 15:03 | Inpatient (IN) | payer MEDICAID ==
[~2018-02-28] VITALS: Ht 170.2 cm; Wt 136.1 kg
[2018-02-28] MEDS ORDERED: SODIUM CHLORIDE 0.9% 500 ML IV ONE (18:00)
[2018-02-28 18:56] LABS: Basophils # (auto) 0 uL; Basophils % (auto) 0.5 % (0.0-2.0); Eosinophils # (auto) 0.1 uL; Eosinophils % (auto) 1.5 % (0.0-7.0); Hematocrit 38.9 % (36.0-46.0); Hemoglobin 12.7 g/dL (12.2-16.2); Lymphocytes # (auto) 2.6 uL; Lymphocytes % (auto) 31.9 % (10.0-50.0); Mean Corpuscular Hemoglobin 30.6 pg (28.0-32.0); Mean Corpuscular Hgb Conc. 32.5 g/dL (32.0-36.0); Mean Corpuscular Volume 94.2 fL (80.0-100.0); Monocytes # (auto) 0.5 uL; Monocytes % (auto) 6.7 % (0.0-12.0); Neutrophils # (auto) 4.8 uL; Neutrophils % (auto) 59.4 % (37.0-80.0); Nucleated Red Blood Cells % 0.1 %; Platelet Count (auto) 300 10^3/uL (140-450); Red Blood Cells 4.13 10^6/uL (4.0-5.20); Red Cell Distribution Width 14.6 % (11.8-14.3); White Blood Cell 8.2 10^3/uL (4.4-10.8)
[2018-02-28 19:09] LABS: Albumin 2.6 g/dL (3.4-5.0); Calcium 7.2 mg/dL (8.5-10.1); Potassium 3.6 mmol/L (3.5-5.1)
[2018-02-28 19:12] LABS: Bilirubin, Total 0.6 mg/dL (0.2-1.0); Total Protein 8.5 g/dL (6.4-8.2)
[2018-02-28] MEDS ORDERED: ACETAMINOPHEN 500 MG TAB PO PRN (21:45)
[2018-02-28] MEDS ORDERED: ONDANSETRON HCL 4 MG/2 ML VIAL IV PRN (21:45)
[2018-02-28] MEDS ORDERED: DEXTROSE (50%) 50ML SYRG IV PRN (21:45)
[2018-02-28] MEDS ORDERED: ALBUTEROL SULF 2.5 MG/0.5ML(0.5%) NEB SOLN NEB PRN (21:45)
[2018-02-28] MEDS: GABAPENTIN 400 MG CAP PO SCH (22:51)
[2018-02-28] MEDS: ACCU-CHEK COMFORT CURVE STRIP VI SCH (22:51)
[2018-02-28] MEDS: InsuLIN REG 1unit/0.01ml Soln (100units/ml) SC SCH (22:53)
[2018-02-28 23:09] VITALS: BP 128/72
[2018-02-28 23:30] VITALS: BP 98/50
[2018-03-01] MEDS ORDERED: VANCOMYCIN PER PHARMACY 0 MG IV SCH (05:00)
[2018-03-01 05:01] VITALS: BP 138/71
[2018-03-01] MEDS ORDERED: VANCOMYCIN 1GM/250ML 250 ML IV ONE (05:15)
[2018-03-01 06:01] LABS: Basophils # (auto) 0 uL; Basophils % (auto) 0.5 % (0.0-2.0); Eosinophils # (auto) 0.2 uL; Eosinophils % (auto) 3.1 % (0.0-7.0); Hematocrit 36.2 % (36.0-46.0); Lymphocytes % (auto) 42.2 % (10.0-50.0); Mean Corpuscular Hgb Conc. 33.1 g/dL (32.0-36.0); Mean Corpuscular Volume 93.7 fL (80.0-100.0); Monocytes # (auto) 0.7 uL; Monocytes % (auto) 9.3 % (0.0-12.0); Neutrophils # (auto) 3.2 uL; Neutrophils % (auto) 44.9 % (37.0-80.0); Nucleated Red Blood Cells % 0.1 %; Platelet Count (auto) 284 10^3/uL (140-450); Red Blood Cells 3.86 10^6/uL (4.0-5.20); Red Cell Distribution Width 14.8 % (11.8-14.3); White Blood Cell 7.2 10^3/uL (4.4-10.8)
[2018-03-01 06:22] LABS: Calcium 7.5 mg/dL (8.5-10.1); Potassium 3.5 mmol/L (3.5-5.1)
[2018-03-01 06:25] LABS: BUN/Creatinine Ratio 11.3
[2018-03-01] MEDS: GABAPENTIN 400 MG CAP PO SCH ×3 (06:30→22:53)
[2018-03-01] MEDS: ACCU-CHEK COMFORT CURVE STRIP VI SCH ×4 (06:42→22:54)
[2018-03-01] MEDS: metFORMIN HYDROCHLORIDE 500 MG TAB PO SCH ×2 (06:42→18:30)
[2018-03-01] MEDS: InsuLIN REG 1unit/0.01ml Soln (100units/ml) SC SCH ×4 (06:42→22:54)
[2018-03-01 09:00] VITALS: BP 131/79
[2018-03-01] MEDS ORDERED: LISINOPRIL 20 MG TAB PO SCH (10:00)
[2018-03-01] MEDS: HCTZ 25 MG TAB PO SCH (10:00)
[2018-03-01] MEDS: LISINOPRIL 20 MG TAB PO SCH (10:00)
[2018-03-01 13:00] VITALS: BP 136/50
[2018-03-01 17:00] VITALS: BP 140/58
[2018-03-01] MEDS: VANCOMYCIN 1GM/250ML 250 ML IV SCH (18:30)
[2018-03-01 20:00] VITALS: BP 150/83
[2018-03-01 22:00] VITALS: BP 150/83
[2018-03-01] MEDS ORDERED: ATORVASTATIN 20 MG TAB PO SCH (22:00)
[2018-03-02 04:52] VITALS: BP 157/82
[2018-03-02 05:55] LABS: Potassium 3.5 mmol/L (3.5-5.1)
[2018-03-02 06:01] LABS: Albumin 2.4 g/dL (3.4-5.0); BUN/Creatinine Ratio 12.8; Calcium 8.3 mg/dL (8.5-10.1)
[2018-03-02 06:13] LABS: Bilirubin, Total 0.4 mg/dL (0.2-1.0); Total Protein 7.7 g/dL (6.4-8.2)
[2018-03-02] MEDS: VANCOMYCIN 1GM/250ML 250 ML IV SCH ×2 (06:26→18:00)
[2018-03-02] MEDS: GABAPENTIN 400 MG CAP PO SCH ×2 (06:26→14:00)
[2018-03-02] MEDS: metFORMIN HYDROCHLORIDE 500 MG TAB PO SCH (06:42)
[2018-03-02] MEDS: InsuLIN REG 1unit/0.01ml Soln (100units/ml) SC SCH ×3 (06:43→17:00)
[2018-03-02] MEDS: ACCU-CHEK COMFORT CURVE STRIP VI SCH ×3 (06:44→17:00)
[2018-03-02 08:06] VITALS: BP 121/62
[2018-03-02] MEDS: HCTZ 25 MG TAB PO SCH (09:25)
[2018-03-02] MEDS: LISINOPRIL 20 MG TAB PO SCH (09:26)
[2018-03-02 13:00] VITALS: BP 147/77
[2018-03-02 16:21] VITALS: BP 144/79
[2018-03-02 17:47] VITALS: BP 121/62
[2018-03-02] MEDS ORDERED: glyBURIDE 5 MG TAB PO SCH (18:00)
== END 2018-03-02 20:17 | disposition home health service (06) | DRG 206 ==
LOC: ER 15:06 → OVERFLOW 15:07 → EAST 23:22
PROVIDERS: ADMIT Nurse Practitioner Family; ATTEND Internal Medicine
DX: T82.594A Other mechanical complication of infusion catheter, initial encounter (principal); N17.0 Acute kidney failure with tubular necrosis; A41.9 Sepsis, unspecified organism; E44.0 Moderate protein-calorie malnutrition; E11.21 Type 2 diabetes mellitus with diabetic nephropathy; E11.40 Type 2 diabetes mellitus with diabetic neuropathy, unspecified; M86.8X7 Other osteomyelitis, ankle and foot; E66.01 Morbid (severe) obesity due to excess calories; E11.69 Type 2 diabetes mellitus with other specified complication; E11.65 Type 2 diabetes mellitus with hyperglycemia; Y92.89 Other specified places as the place of occurrence of the external cause; E11.621 Type 2 diabetes mellitus with foot ulcer; E78.5 Hyperlipidemia, unspecified; F17.210 Nicotine dependence, cigarettes, uncomplicated; F12.90 Cannabis use, unspecified, uncomplicated; I10 Essential (primary) hypertension; J44.9 Chronic obstructive pulmonary disease, unspecified; L97.519 Non-pressure chronic ulcer of other part of right foot with unspecified severity; Y71.2 Prosthetic and other implants, materials and accessory cardiovascular devices associated with adverse incidents; Z79.84 Long term (current) use of oral hypoglycemic drugs; Z82.49 Family history of ischemic heart disease and other diseases of the circulatory system; Z83.3 Family history of diabetes mellitus; Z88.6 Allergy status to analgesic agent; Z91.012 Allergy to eggs; Z91.013 Allergy to seafood; Z91.018 Allergy to other foods; M19.90 Unspecified osteoarthritis, unspecified site; Z68.42 Body mass index [BMI] 45.0-49.9, adult
CPT/HCPCS: 36415; 80048; 80053; 82962; 85025; 94761; 96372; A6257; G0378; J1815

== ENCOUNTER 2018-03-04 15:19 | Emergency (ER) | payer MEDICAID ==
[~2018-03-04] VITALS: Ht 170.2 cm; Wt 136.1 kg
[2018-03-04 15:30] VITALS: BP 152/78
== END 2018-03-04 18:38 | disposition home or self-care (01) ==
LOC: ER 15:23
DX: Z95.9 Presence of cardiac and vascular implant and graft, unspecified (principal); J45.909 Unspecified asthma, uncomplicated; E11.9 Type 2 diabetes mellitus without complications; E78.5 Hyperlipidemia, unspecified; I10 Essential (primary) hypertension; F17.210 Nicotine dependence, cigarettes, uncomplicated; F12.10 Cannabis abuse, uncomplicated; Z88.6 Allergy status to analgesic agent; Z91.012 Allergy to eggs; Z91.02 Food additives allergy status; Z91.013 Allergy to seafood; Z91.018 Allergy to other foods; Z79.899 Other long term (current) drug therapy
CPT/HCPCS: 71046

== ENCOUNTER 2018-03-19 14:31 | Emergency (ER) | payer MEDICAID ==
[~2018-03-19] VITALS: Ht 170.2 cm; Wt 136.1 kg
[2018-03-19 17:18] VITALS: BP 132/95
== END 2018-03-19 18:28 | disposition home or self-care (01) ==
LOC: ER 14:31
DX: S46.912A Strain of unspecified muscle, fascia and tendon at shoulder and upper arm level, left arm, initial encounter (principal); M19.90 Unspecified osteoarthritis, unspecified site; J45.909 Unspecified asthma, uncomplicated; E11.9 Type 2 diabetes mellitus without complications; E78.5 Hyperlipidemia, unspecified; I10 Essential (primary) hypertension; F17.210 Nicotine dependence, cigarettes, uncomplicated; F12.10 Cannabis abuse, uncomplicated; Z91.012 Allergy to eggs; Z91.02 Food additives allergy status; Z91.013 Allergy to seafood; Z88.6 Allergy status to analgesic agent; X58.XXXA Exposure to other specified factors, initial encounter; Y93.89 Activity, other specified; Y92.89 Other specified places as the place of occurrence of the external cause; Y99.8 Other external cause status
CPT/HCPCS: 71046; 73060; 73200

== ENCOUNTER 2020-09-13 14:51 | Inpatient (IN) | payer MEDICAID ==
[~2020-09-13] VITALS: Ht 170.2 cm; Wt 154.0 kg
[~2020-09-13 14:51] MED LIST changes: +LISI-716 PO; -LISI10TA6 PO
[2020-09-13] MEDS ORDERED: SODIUM CHLORIDE 0.9% 1,000 ML IV ONE ×2 (16:30)
[2020-09-13] MEDS ORDERED: CLINDAMYCIN 600MG IV 50 ML IV ONE (16:30)
[2020-09-13] MEDS ORDERED: cefTRIAXone 1GM/50ML D5W 50 ML IV ONE (16:30)
[2020-09-13] MEDS ORDERED: ONDANSETRON HCL 4 MG/2 ML VIAL IV ONE (18:15)
[2020-09-13] MEDS ORDERED: MORPHINE SULFATE 4 MG/ML SYR/VIAL IV ONE (18:15)
[2020-09-13 20:40] LABS: Basophils # (auto) 0.1 10 ^3/uL (0-0.2); Basophils % (auto) 0.6 % (0.0-2.0); Eosinophils # (auto) 0.2 10 ^3/uL (0-0.8); Hematocrit 39.8 % (36.0-46.0); Hemoglobin 12.5 g/dL (12.2-16.2); Lymphocytes # (auto) 1.5 10 ^3/uL (0.4-5.4); Lymphocytes % (auto) 9.1 % (10.0-50.0); Mean Corpuscular Hemoglobin 27.3 pg (28.0-32.0); Mean Corpuscular Hgb Conc. 31.5 g/dL (32.0-36.0); Mean Corpuscular Volume 86.6 fL (80.0-100.0); Monocytes # (auto) 0.8 10 ^3/uL (0-1.3); Monocytes % (auto) 4.7 % (0.0-12.0); Neutrophils # (auto) 13.7 10 ^3/uL (1.6-8.6); Neutrophils % (auto) 84.6 % (37.0-80.0); Platelet Count (auto) 371 10^3/uL (140-450); Red Cell Distribution Width 18.5 % (11.8-14.3); White Blood Cell 16.2 10^3/uL (4.4-10.8)
[2020-09-13 20:54] LABS: INR 1.05 (0.9-1.15); Partial Thromboplastin Time 26.5 sec (23.0-31.2)
[2020-09-13 21:00] LABS: Calcium 7.8 mg/dL (8.5-10.1); Potassium 3.5 mmol/L (3.5-5.1)
[2020-09-13 21:06] LABS: Albumin 1.9 g/dL (3.4-5.0); BUN/Creatinine Ratio 14.4; Bilirubin, Total 0.5 mg/dL (0.2-1.0); Total Protein 7.5 g/dL (6.4-8.2)
[2020-09-13] MEDS ORDERED: hydrALAZINE HCL 20 MG/ML VL IV PRN (21:30)
[2020-09-13] MEDS ORDERED: DEXTROSE (50%) 50ML SYRG IV PRN (21:30)
[2020-09-13] MEDS ORDERED: methylPREDNISolone SOD SUCC 125 MG/2 ML VL IV ONE (21:30)
[2020-09-13] MEDS: ALBUTEROL SULF 2.5 MG/0.5ML(0.5%) NEB SOLN NEB SCH (22:00)
[2020-09-13] MEDS: InsuLIN REG 1unit/0.01ml Soln (100units/ml) SC SCH (22:00)
[2020-09-13] MEDS: ACCU-CHEK COMFORT CURVE STRIP VI SCH (22:02)
[2020-09-13] MEDS: GABAPENTIN 300 MG CAP PO SCH (22:10)
[2020-09-13] MEDS: ATORVASTATIN 20 MG TAB PO SCH (22:10)
[2020-09-13] MEDS: CLINDAMYCIN 600MG IV 50 ML IV SCH (22:13)
[2020-09-13 23:25] VITALS: BP 126/61
[2020-09-14] VITALS (7 sets, daily range): BP systolic 112–160; BP diastolic 60–98
[2020-09-14 00:38] LABS: Urine Bacteria MOD /hpf (None Seen); Urine Blood 1+ /uL (Negative); Urine Specific Gravity 1.013 (1.001-1.035); Urine WBC 92 /hpf (0 - 5)
[2020-09-14] MEDS: ACETAMINOPHEN 325 MG TAB PO PRN ×2 (01:53→22:07)
[2020-09-14] MEDS ORDERED: FURO1TAB31 PO (03:56)
[2020-09-14] MEDS ORDERED: GABA-339 PO (03:56)
[2020-09-14] MEDS ORDERED: TRAM50TA2 PO (03:56)
[2020-09-14 05:15] LABS: Basophils # (auto) 0 10 ^3/uL (0-0.2); Eosinophils # (auto) 0 10 ^3/uL (0-0.8); Lymphocytes # (auto) 0.7 10 ^3/uL (0.4-5.4); Monocytes # (auto) 0.1 10 ^3/uL (0-1.3); Red Cell Distribution Width 18.3 % (11.8-14.3)
[2020-09-14 05:19] LABS: Basophils % (auto) 0.2 % (0.0-2.0); Eosinophils % (auto) 0.1 % (0.0-7.0); Hematocrit 41.5 % (36.0-46.0); Hemoglobin 12.9 g/dL (12.2-16.2); Lymphocytes % (auto) 5.9 % (10.0-50.0); Mean Corpuscular Hgb Conc. 31.2 g/dL (32.0-36.0); Mean Corpuscular Volume 86.7 fL (80.0-100.0); Neutrophils # (auto) 11.1 10 ^3/uL (1.6-8.6); Neutrophils % (auto) 92.8 % (37.0-80.0); Platelet Count (auto) 352 10^3/uL (140-450); Red Blood Cells 4.79 10^6/uL (4.0-5.20); White Blood Cell 11.9 10^3/uL (4.4-10.8)
[2020-09-14] MEDS: InsuLIN REG 1unit/0.01ml Soln (100units/ml) SC SCH ×4 (06:20→21:56)
[2020-09-14] MEDS: ALBUTEROL SULF 2.5 MG/0.5ML(0.5%) NEB SOLN NEB SCH ×5 (06:21→23:07)
[2020-09-14] MEDS: GABAPENTIN 300 MG CAP PO SCH ×3 (06:23→21:55)
[2020-09-14] MEDS: ACCU-CHEK COMFORT CURVE STRIP VI SCH ×4 (06:23→22:00)
[2020-09-14] MEDS: CLINDAMYCIN 600MG IV 50 ML IV SCH ×3 (06:23→21:54)
[2020-09-14] MEDS: LISINOPRIL 10 MG TAB PO SCH (10:07)
[2020-09-14] MEDS: methylPREDNISolone SOD SUCC 40 MG/ML VL IV SCH ×2 (10:07→21:54)
[2020-09-14] MEDS: levoFLOXacin 500MG 100 ML IV SCH (10:45)
[2020-09-14] MEDS ORDERED: IOHEXOL 350 MG/ML 100ML IJ ONE (16:55)
[2020-09-14] MEDS ORDERED: ALBUAER3 IN ×2 (17:36→17:39)
[2020-09-14] MEDS ORDERED: PRED20TA2 PO ×2 (17:36→17:39)
[2020-09-14] MEDS ORDERED: IPRIH IN ×2 (17:36→17:39)
[2020-09-14] MEDS ORDERED: CLIN300C8 PO ×2 (17:36→17:40)
[2020-09-14] MEDS ORDERED: LEVO500T31 PO ×2 (17:36→17:39)
[2020-09-14] MEDS ORDERED: HYDROcodone-ACET 5/325MG TAB PO PRN (19:15)
[2020-09-14] MEDS: ATORVASTATIN 20 MG TAB PO SCH (21:54)
[2020-09-15 05:00] VITALS: BP 138/74
[2020-09-15] MEDS: CLINDAMYCIN 600MG IV 50 ML IV SCH ×2 (06:06→14:00)
[2020-09-15] MEDS: GABAPENTIN 300 MG CAP PO SCH ×2 (06:06→14:00)
[2020-09-15] MEDS: InsuLIN REG 1unit/0.01ml Soln (100units/ml) SC SCH ×2 (06:19→11:30)
[2020-09-15] MEDS: ALBUTEROL SULF 2.5 MG/0.5ML(0.5%) NEB SOLN NEB SCH ×3 (06:22→13:38)
[2020-09-15] MEDS: ACCU-CHEK COMFORT CURVE STRIP VI SCH ×2 (06:24→12:13)
[2020-09-15 09:01] VITALS: BP 160/80
[2020-09-15] MEDS: methylPREDNISolone SOD SUCC 40 MG/ML VL IV SCH (09:41)
[2020-09-15] MEDS: levoFLOXacin 500MG 100 ML IV SCH (09:41)
[2020-09-15] MEDS: LISINOPRIL 10 MG TAB PO SCH (09:42)
[2020-09-15 13:12] VITALS: BP 161/85
[2020-09-15 13:57] VITALS: BP 149/83
== END 2020-09-15 14:40 | disposition home health service (06) | DRG 383 ==
LOC: ER 14:51 → OVERFLOW 21:18 → WEST WING 22:48
PROVIDERS: ADMIT Internal Medicine; ATTEND Internal Medicine
DX: L03.115 Cellulitis of right lower limb (principal); J96.01 Acute respiratory failure with hypoxia; J44.1 Chronic obstructive pulmonary disease with (acute) exacerbation; J45.901 Unspecified asthma with (acute) exacerbation; E11.40 Type 2 diabetes mellitus with diabetic neuropathy, unspecified; E11.69 Type 2 diabetes mellitus with other specified complication; E88.09 Other disorders of plasma-protein metabolism, not elsewhere classified; E66.2 Morbid (severe) obesity with alveolar hypoventilation; L03.116 Cellulitis of left lower limb; E78.5 Hyperlipidemia, unspecified; F17.210 Nicotine dependence, cigarettes, uncomplicated; S81.802A Unspecified open wound, left lower leg, initial encounter; S81.801A Unspecified open wound, right lower leg, initial encounter; N39.0 Urinary tract infection, site not specified; Z20.822 Contact with and (suspected) exposure to COVID-19; Z79.899 Other long term (current) drug therapy; Z82.49 Family history of ischemic heart disease and other diseases of the circulatory system; Z83.3 Family history of diabetes mellitus; Z79.84 Long term (current) use of oral hypoglycemic drugs; Z88.5 Allergy status to narcotic agent; Z91.013 Allergy to seafood; Z91.018 Allergy to other foods; J98.11 Atelectasis; X58.XXXA Exposure to other specified factors, initial encounter; Y93.89 Activity, other specified; Y92.89 Other specified places as the place of occurrence of the external cause; Y99.8 Other external cause status; I10 Essential (primary) hypertension
CPT/HCPCS: 36415; 71045; 71275; 73700; 80053; 81001; 82962; 83605; 83880; 84484; 85025; 85379; 85610; 85730; 87040; 87426; 93970; 94640; 96365; 96375; G0378; J0696; J1815; J1956; J2405; J3490

== ENCOUNTER 2021-01-08 18:05 | Inpatient (IN) | payer MEDICAID ==
[~2021-01-08] VITALS: Ht 170.2 cm; Wt 163.8 kg
[~2021-01-08 18:05] MED LIST changes: +CLIN300C8 PO; +FURO1TAB31 PO; +GABA-339 PO; +IPRIH IN; +LEVO500T31 PO; +PRED20TA2 PO; +TRAM50TA2 PO
[2021-01-08 19:14] LABS: Basophils # (auto) 0.1 10 ^3/uL (0-0.2); Basophils % (auto) 0.6 % (0.0-2.0); Eosinophils # (auto) 0.4 10 ^3/uL (0-0.8); Eosinophils % (auto) 2.1 % (0.0-7.0); Hematocrit 36.8 % (36.0-46.0); Hemoglobin 11.8 g/dL (12.2-16.2); Lymphocytes # (auto) 1.4 10 ^3/uL (0.4-5.4); Lymphocytes % (auto) 8.2 % (10.0-50.0); Mean Corpuscular Hemoglobin 28.6 pg (28.0-32.0); Mean Corpuscular Volume 89.4 fL (80.0-100.0); Monocytes # (auto) 0.8 10 ^3/uL (0-1.3); Monocytes % (auto) 4.6 % (0.0-12.0); Neutrophils # (auto) 14.6 10 ^3/uL (1.6-8.6); Neutrophils % (auto) 84.5 % (37.0-80.0); Red Blood Cells 4.11 10^6/uL (4.0-5.20); Red Cell Distribution Width 17.5 % (11.8-14.3); White Blood Cell 17.3 10^3/uL (4.4-10.8)
[2021-01-08 19:33] LABS: Albumin 1.7 g/dL (3.4-5.0); Calcium 8.1 mg/dL (8.5-10.1); Potassium 3.4 mmol/L (3.5-5.1)
[2021-01-08 19:36] LABS: Lactic Acid w/Reflex 2.7 mmol/L (0.4-2.0)
[2021-01-08 19:37] LABS: BUN/Creatinine Ratio 11.2; Bilirubin, Total 0.8 mg/dL (0.2-1.0); Total Protein 8.2 g/dL (6.4-8.2)
[2021-01-08] MEDS ORDERED: SODIUM CHLORIDE 0.9% 1,000 ML IV ONE (21:30)
[2021-01-08] MEDS ORDERED: LACTATED RINGER'S 1,000 ML IV ONE (23:00)
[2021-01-08] MEDS ORDERED: PIPERACILLIN-TAZOB 3.375GM 100 ML IV ONE (23:00)
[2021-01-08] MEDS ORDERED: cefTRIAXone 1GM/50ML D5W 50 ML IV ONE (23:00)
[2021-01-08] MEDS ORDERED: VANCOMYCIN 1GM/250ML 250 ML IV ONE (23:00)
[2021-01-09] MEDS ORDERED: ONDANSETRON HCL 4 MG/2 ML VIAL IV ONE (02:00)
[2021-01-09] MEDS ORDERED: fentaNYL CITRATE 100 MCG/2 ML VL IV ONE (02:00)
[2021-01-09] MEDS ORDERED: NITROGLYCERIN 0.4 MG SL TAB SL PRN (02:30)
[2021-01-09] MEDS ORDERED: DEXTROSE (50%) 50ML SYRG IV ONE ×2 (02:30→20:15)
[2021-01-09] MEDS ORDERED: ONDANSETRON HCL 4 MG/2 ML VIAL IV PRN (02:30)
[2021-01-09] MEDS ORDERED: HYDROcodone-ACET 5/325MG TAB PO PRN ×2 (02:30→20:00)
[2021-01-09] MEDS ORDERED: SODIUM CHLORIDE 0.9% 1,000 ML IV ONE (02:30)
[2021-01-09] MEDS: CLINDAMYCIN 900MG IV 50 ML IV SCH ×3 (05:58→22:46)
[2021-01-09] MEDS ORDERED: InsuLIN REG 1unit/0.01ml Soln (100units/ml) SC ONE (07:00)
[2021-01-09] MEDS ORDERED: ACCU-CHEK COMFORT CURVE STRIP VI ONE (07:00)
[2021-01-09 08:01] LABS: Basophils # (auto) 0.1 10 ^3/uL (0-0.2); Basophils % (auto) 0.6 % (0.0-2.0); Eosinophils # (auto) 0.4 10 ^3/uL (0-0.8); Hematocrit 33.5 % (36.0-46.0); Hemoglobin 10.7 g/dL (12.2-16.2); Lymphocytes # (auto) 1.4 10 ^3/uL (0.4-5.4); Lymphocytes % (auto) 9.7 % (10.0-50.0); Mean Corpuscular Hemoglobin 28.9 pg (28.0-32.0); Mean Corpuscular Hgb Conc. 32.1 g/dL (32.0-36.0); Mean Corpuscular Volume 90.1 fL (80.0-100.0); Monocytes # (auto) 0.8 10 ^3/uL (0-1.3); Monocytes % (auto) 5.8 % (0.0-12.0); Neutrophils # (auto) 11.4 10 ^3/uL (1.6-8.6); Neutrophils % (auto) 80.9 % (37.0-80.0); Red Blood Cells 3.72 10^6/uL (4.0-5.20); Red Cell Distribution Width 17.6 % (11.8-14.3); White Blood Cell 14.1 10^3/uL (4.4-10.8)
[2021-01-09 08:17] LABS: Calcium 7.8 mg/dL (8.5-10.1); Potassium 3.5 mmol/L (3.5-5.1)
[2021-01-09] MEDS: levoFLOXacin 500MG 100 ML IV SCH (09:59)
[2021-01-09] MEDS ORDERED: ENOXAPARIN SOD 40 MG/0.4 ML SYRINGE SC SCH (10:00)
[2021-01-09 17:45] VITALS: BP 148/84
[2021-01-09] MEDS ORDERED: hydrALAZINE HCL 20 MG/ML VL IV PRN (20:00)
[2021-01-09] MEDS ORDERED: ACETAMINOPHEN 325 MG TAB PO PRN ×2 (20:00→20:30)
[2021-01-09] MEDS ORDERED: HYDROcodone-ACET 10/325MG TAB PO PRN ×2 (20:30→22:30)
[2021-01-09] MEDS ORDERED: ALBUTEROL SULF 2.5 MG/0.5ML(0.5%) NEB SOLN NEB PRN (20:30)
[2021-01-09] MEDS ORDERED: FURO1TAB33 PO (20:38)
[2021-01-09] MEDS ORDERED: LOSA25TA38 PO (20:38)
[2021-01-09] MEDS ORDERED: HYDR-4072 PO (20:38)
[2021-01-09 21:55] VITALS: BP 139/75
[2021-01-09] MEDS ORDERED: ATORVASTATIN 20 MG TAB PO SCH (22:00)
[2021-01-09] MEDS ORDERED: INSULIN LANTUS (GLARGINE) 1 /0.01ml (100units/ml) SC SCH (22:00)
[2021-01-09] MEDS: GABAPENTIN 400 MG CAP PO SCH (22:46)
[2021-01-09] MEDS: ACCU-CHEK COMFORT CURVE STRIP VI SCH (22:47)
[2021-01-09] MEDS: InsuLIN REG 1unit/0.01ml Soln (100units/ml) SC SCH (22:53)
[2021-01-09] MEDS: INSULIN LANTUS (GLARGINE) 1 /0.01ml (100units/ml) SC SCH (23:10)
[2021-01-10 05:00] VITALS: BP 141/70
[2021-01-10 05:41] LABS: Basophils # (auto) 0.1 10 ^3/uL (0-0.2); Basophils % (auto) 0.6 % (0.0-2.0); Eosinophils # (auto) 0.4 10 ^3/uL (0-0.8); Eosinophils % (auto) 3.2 % (0.0-7.0); Hematocrit 33.6 % (36.0-46.0); Hemoglobin 10.8 g/dL (12.2-16.2); Lymphocytes # (auto) 1.7 10 ^3/uL (0.4-5.4); Lymphocytes % (auto) 13.9 % (10.0-50.0); Mean Corpuscular Hemoglobin 28.9 pg (28.0-32.0); Mean Corpuscular Hgb Conc. 32.2 g/dL (32.0-36.0); Mean Corpuscular Volume 89.9 fL (80.0-100.0); Monocytes # (auto) 0.7 10 ^3/uL (0-1.3); Monocytes % (auto) 5.5 % (0.0-12.0); Neutrophils # (auto) 9.2 10 ^3/uL (1.6-8.6); Neutrophils % (auto) 76.8 % (37.0-80.0); Red Blood Cells 3.73 10^6/uL (4.0-5.20); Red Cell Distribution Width 17.4 % (11.8-14.3)
[2021-01-10 05:54] LABS: BUN/Creatinine Ratio 14.3; Calcium 8.1 mg/dL (8.5-10.1); Potassium 3.7 mmol/L (3.5-5.1)
[2021-01-10] MEDS: CLINDAMYCIN 900MG IV 50 ML IV SCH ×3 (06:08→22:28)
[2021-01-10] MEDS: GABAPENTIN 400 MG CAP PO SCH ×2 (06:08→13:33)
[2021-01-10] MEDS: ACCU-CHEK COMFORT CURVE STRIP VI SCH ×4 (06:08→22:28)
[2021-01-10] MEDS: InsuLIN REG 1unit/0.01ml Soln (100units/ml) SC SCH ×4 (06:08→22:00)
[2021-01-10] MEDS ORDERED: ATOR40TA52 PO (08:52)
[2021-01-10] MEDS ORDERED: ESCI-34 PO (08:58)
[2021-01-10 09:00] VITALS: BP 133/72
[2021-01-10] MEDS ORDERED: LOSA-69 PO (09:02)
[2021-01-10] MEDS ORDERED: INSU1INJ19 SC ×2 (09:02→14:15)
[2021-01-10] MEDS ORDERED: FUROSEMIDE 20 MG TAB PO SCH (10:00)
[2021-01-10] MEDS: INSULIN LANTUS (GLARGINE) 1 /0.01ml (100units/ml) SC SCH ×2 (10:00→22:00)
[2021-01-10] MEDS ORDERED: ENOXAPARIN SOD 40 MG/0.4 ML SYRINGE SC SCH (10:00)
[2021-01-10] MEDS ORDERED: LISINOPRIL 10 MG TAB PO SCH (10:00)
[2021-01-10] MEDS ORDERED: POTASSIUM CHL 20 Meq TABLET PO SCH (10:00)
[2021-01-10] MEDS: levoFLOXacin 500MG 100 ML IV SCH (10:04)
[2021-01-10] MEDS ORDERED: METH500T22 PO (11:03)
[2021-01-10] MEDS ORDERED: GABA-339 PO (11:05)
[2021-01-10 13:00] VITALS: BP 140/79
[2021-01-10 14:45] LABS: INR 1.06 (0.9-1.15); Partial Thromboplastin Time 29.1 sec (23.6-33.0)
[2021-01-10 16:54] VITALS: BP 147/81
[2021-01-10 22:00] VITALS: BP 147/86
[2021-01-10] MEDS ORDERED: ATORVASTATIN 20 MG TAB PO SCH (22:00)
[2021-01-10] MEDS ORDERED: GABAPENTIN 400 MG CAP PO SCH (22:00)
[2021-01-10] MEDS: GABAPENTIN 300 MG CAP PO SCH (22:29)
[2021-01-11 05:00] VITALS: BP 102/49
[2021-01-11] MEDS: ACCU-CHEK COMFORT CURVE STRIP VI SCH (05:57)
[2021-01-11] MEDS: InsuLIN REG 1unit/0.01ml Soln (100units/ml) SC SCH (05:57)
[2021-01-11] MEDS: CLINDAMYCIN 900MG IV 50 ML IV SCH (05:58)
[2021-01-11] MEDS: GABAPENTIN 300 MG CAP PO SCH (05:58)
[2021-01-11 06:10] LABS: Basophils # (auto) 0.1 10 ^3/uL (0-0.2); Basophils % (auto) 0.7 % (0.0-2.0); Eosinophils # (auto) 0.3 10 ^3/uL (0-0.8); Eosinophils % (auto) 3.5 % (0.0-7.0); Hematocrit 32.7 % (36.0-46.0); Hemoglobin 10.7 g/dL (12.2-16.2); Lymphocytes # (auto) 1.5 10 ^3/uL (0.4-5.4); Mean Corpuscular Hemoglobin 29.1 pg (28.0-32.0); Mean Corpuscular Hgb Conc. 32.6 g/dL (32.0-36.0); Mean Corpuscular Volume 89.3 fL (80.0-100.0); Monocytes # (auto) 0.9 10 ^3/uL (0-1.3); Monocytes % (auto) 9.2 % (0.0-12.0); Neutrophils # (auto) 7.1 10 ^3/uL (1.6-8.6); Neutrophils % (auto) 71.6 % (37.0-80.0); Nucleated Red Blood Cells % 0.1 %; Red Blood Cells 3.66 10^6/uL (4.0-5.20); White Blood Cell 9.9 10^3/uL (4.4-10.8)
[2021-01-11 06:27] LABS: BUN/Creatinine Ratio 18.9; Calcium 7.9 mg/dL (8.5-10.1)
[2021-01-11 09:00] VITALS: BP 120/60
[2021-01-11] MEDS ORDERED: LOSARTAN POTASSIUM 50 MG TAB PO SCH (10:00)
[2021-01-11] MEDS ORDERED: CITALOPRAM HYDROBR 20 MG TAB PO SCH (10:00)
== END 2021-01-11 10:00 | disposition left against medical advice (07) | DRG 344 ==
LOC: ER 18:05 → TELE 01-09 02:17 → TELE-WESTW 01-09 17:18
PROVIDERS: ADMIT Hospitalist; ATTEND Hospitalist
PROC: 05HY33Z Insertion of Infusion Device into Upper Vein, Percutaneous Approach (ICD-10-PCS; principal; 2021-01-11)
DX: E11.69 Type 2 diabetes mellitus with other specified complication (principal); M86.8X7 Other osteomyelitis, ankle and foot; J96.11 Chronic respiratory failure with hypoxia; E87.2 Acidosis; E87.1 Hypo-osmolality and hyponatremia; E11.621 Type 2 diabetes mellitus with foot ulcer; S91.301A Unspecified open wound, right foot, initial encounter; E11.22 Type 2 diabetes mellitus with diabetic chronic kidney disease; D72.829 Elevated white blood cell count, unspecified; L97.509 Non-pressure chronic ulcer of other part of unspecified foot with unspecified severity; E11.51 Type 2 diabetes mellitus with diabetic peripheral angiopathy without gangrene; E66.01 Morbid (severe) obesity due to excess calories; Z20.822 Contact with and (suspected) exposure to COVID-19; Z53.29 Procedure and treatment not carried out because of patient's decision for other reasons; E87.6 Hypokalemia; X58.XXXA Exposure to other specified factors, initial encounter; E78.5 Hyperlipidemia, unspecified; F17.210 Nicotine dependence, cigarettes, uncomplicated; F32.9 Major depressive disorder, single episode, unspecified; F41.9 Anxiety disorder, unspecified; I12.9 Hypertensive chronic kidney disease with stage 1 through stage 4 chronic kidney disease, or unspecified chronic kidney disease; J44.9 Chronic obstructive pulmonary disease, unspecified; N18.30 Chronic kidney disease, stage 3 unspecified; Z68.42 Body mass index [BMI] 45.0-49.9, adult; Z83.3 Family history of diabetes mellitus; Z71.6 Tobacco abuse counseling; Y93.89 Activity, other specified; Y92.89 Other specified places as the place of occurrence of the external cause; Y99.8 Other external cause status; Z91.012 Allergy to eggs; Z88.5 Allergy status to narcotic agent; Z91.013 Allergy to seafood; Z91.018 Allergy to other foods
CPT/HCPCS: 36415; 71045; 73630; 73718; 80048; 80053; 82962; 83036; 83605; 84702; 85025; 85610; 85730; 86850; 86900; 86901; 87040; 87077; 87186; 87205; 87426; 93306; 93926; 96361; 96365; 96366; 96367; 96372; 96375; G0378; J0696; J1815; J1956; J2405; J3490

== ENCOUNTER 2021-05-11 11:36 | Emergency (ER) | payer MEDICAID ==
[~2021-05-11] VITALS: Ht 170.2 cm; Wt 154.2 kg
[~2021-05-11 11:36] MED LIST changes: -ATOR20TA50 PO; +ATOR40TA52 PO; -CLIN300C8 PO; +ESCI-34 PO; -FURO1TAB31 PO; +FURO1TAB33 PO; -GABA300C10 PO; -GLYB5TAB8 PO; -HYDR12.56 PO; +INSU1INJ19 SC; -LEVO500T31 PO; -LISI-716 PO; +LOSA-69 PO; +METH500T22 PO; -PRED20TA2 PO
[2021-05-11 11:45] VITALS: BP 228/136
[2021-05-11] MEDS ORDERED: ONDANSETRON HCL 4 MG/2 ML VIAL IV ONE (12:00)
[2021-05-11] MEDS ORDERED: SODIUM CHLORIDE 0.9% 1,000 ML IVB ONE (12:00)
[2021-05-11] MEDS ORDERED: MORPHINE SULFATE 4 MG/ML SYR/VIAL IV ONE (12:00)
[2021-05-11 15:50] LABS: Basophils # (auto) 0.1 10 ^3/uL (0-0.2); Basophils % (auto) 0.8 % (0.0-2.0); Eosinophils # (auto) 0.1 10 ^3/uL (0-0.8); Eosinophils % (auto) 0.9 % (0.0-7.0); Hematocrit 42.7 % (36.0-46.0); Hemoglobin 13.9 g/dL (12.2-16.2); Lymphocytes # (auto) 1.4 10 ^3/uL (0.4-5.4); Lymphocytes % (auto) 10.2 % (10.0-50.0); Mean Corpuscular Hemoglobin 28.6 pg (28.0-32.0); Mean Corpuscular Hgb Conc. 32.5 g/dL (32.0-36.0); Monocytes # (auto) 0.7 10 ^3/uL (0-1.3); Monocytes % (auto) 5.2 % (0.0-12.0); Neutrophils # (auto) 11.1 10 ^3/uL (1.6-8.6); Neutrophils % (auto) 82.9 % (37.0-80.0); Red Blood Cells 4.85 10^6/uL (4.0-5.20); Red Cell Distribution Width 18.9 % (11.8-14.3); White Blood Cell 13.4 10^3/uL (4.4-10.8)
[2021-05-11 16:13] LABS: Calcium 8.1 mg/dL (8.5-10.1); Potassium 3.1 mmol/L (3.5-5.1)
[2021-05-11 16:18] LABS: Bilirubin, Total 0.8 mg/dL (0.2-1.0); Total Protein 7.3 g/dL (6.4-8.2)
[2021-05-11 20:41] LABS: Urine Bacteria FEW /hpf (None Seen); Urine Blood 1+ /uL (Negative); Urine Hyaline Cast FEW /lpf (0 - 2); Urine Mucus FEW (None Seen); Urine Specific Gravity 1.013 (1.001-1.035); Urine WBC 11 /hpf (0 - 5)
== END 2021-05-11 21:00 | disposition left against medical advice (07) ==
LOC: ER 11:36 → EDBD 11:36 → ER 21:00
DX: K80.20 Calculus of gallbladder without cholecystitis without obstruction (principal); I10 Essential (primary) hypertension; J44.9 Chronic obstructive pulmonary disease, unspecified; E11.9 Type 2 diabetes mellitus without complications; E78.5 Hyperlipidemia, unspecified; F17.210 Nicotine dependence, cigarettes, uncomplicated; Z79.899 Other long term (current) drug therapy; Z88.5 Allergy status to narcotic agent; Z91.018 Allergy to other foods; Z91.013 Allergy to seafood; Z91.012 Allergy to eggs
CPT/HCPCS: 36415; 74176; 80053; 81001; 82150; 83690; 85025; 93005; 96361; 96374; 99285; J2405; J7030

== ENCOUNTER 2021-06-19 22:41 | Inpatient (IN) | payer MEDICAID ==
[~2021-06-19] VITALS: Ht 170.2 cm; Wt 152.7 kg
[2021-06-19 23:48] LABS: Basophils # (auto) 0.1 10 ^3/uL (0-0.2); Basophils % (auto) 0.9 % (0.0-2.0); Eosinophils # (auto) 0.1 10 ^3/uL (0-0.8); Eosinophils % (auto) 1.2 % (0.0-7.0); Hematocrit 40.3 % (36.0-46.0); Hemoglobin 12.9 g/dL (12.2-16.2); Lymphocytes # (auto) 0.9 10 ^3/uL (0.4-5.4); Mean Corpuscular Hemoglobin 28.7 pg (28.0-32.0); Mean Corpuscular Hgb Conc. 32.1 g/dL (32.0-36.0); Mean Corpuscular Volume 89.4 fL (80.0-100.0); Monocytes # (auto) 0.4 10 ^3/uL (0-1.3); Monocytes % (auto) 3.3 % (0.0-12.0); Neutrophils # (auto) 9.5 10 ^3/uL (1.6-8.6); Neutrophils % (auto) 86.6 % (37.0-80.0); Nucleated Red Blood Cells % 0.1 %; Red Blood Cells 4.51 10^6/uL (4.0-5.20); Red Cell Distribution Width 18.2 % (11.8-14.3)
[2021-06-19 23:57] LABS: INR 1.04 (0.9-1.15); Partial Thromboplastin Time 26.2 sec (23.6-33.0)
[2021-06-19 23:59] LABS: Albumin 1.9 g/dL (3.4-5.0); Calcium 8.3 mg/dL (8.5-10.1); Potassium 3.7 mmol/L (3.5-5.1)
[2021-06-20] MEDS ORDERED: dilTIAZem 25 MG/5 ML VIAL IV ONE
[2021-06-20 00:06] LABS: BUN/Creatinine Ratio 11.4; Bilirubin, Total 0.8 mg/dL (0.2-1.0)
[2021-06-20] MEDS ORDERED: ASPirin 325 MG TAB PO ONE (00:15)
[2021-06-20] MEDS ORDERED: NITROGLYCERIN 0.4 MG SL TAB SL PRN (01:00)
[2021-06-20] MEDS ORDERED: MORPHINE SULFATE INJECTION 2 MG/ML SYRG IV PRN (01:00)
[2021-06-20] MEDS ORDERED: ACETAMINOPHEN 325 MG TAB PO PRN (01:00)
[2021-06-20] MEDS ORDERED: APIXABAN 5 MG TAB PO STA (01:21)
[2021-06-20] MEDS ORDERED: DEXTROSE (50%) 50ML SYRG IV PRN (01:30)
[2021-06-20] MEDS: hydrALAZINE HCL 10 MG TAB PO PRN (05:00)
[2021-06-20] MEDS: IPRATROPIUM BROM 0.5 MG/2.5ML INH SOL NEB SCH ×3 (06:45→18:57)
[2021-06-20] MEDS: InsuLIN REG 1unit/0.01ml Soln (100units/ml) SC SCH ×3 (07:00→21:54)
[2021-06-20] MEDS: ACCU-CHEK COMFORT CURVE STRIP VI SCH ×3 (07:00→21:44)
[2021-06-20] MEDS: ASPirin-EC 81 mg tab PO SCH (08:27)
[2021-06-20] MEDS ORDERED: APIXABAN 5 MG TAB PO SCH (10:00)
[2021-06-20] MEDS: POTASSIUM CHL 20 Meq TABLET PO SCH ×2 (10:00→10:57)
[2021-06-20] MEDS ORDERED: ATORVASTATIN 20 MG TAB PO SCH (10:00)
[2021-06-20] MEDS ORDERED: ENOXAPARIN SOD 150 MG/1 ML SYRINGE SC SCH (10:00)
[2021-06-20] MEDS: FAMOTIDINE 20 MG TAB PO SCH ×2 (10:00→10:57)
[2021-06-20] MEDS ORDERED: FUROSEMIDE 40 MG/4 ML VIAL IV SCH (10:00)
[2021-06-20 10:37] LABS: Basophils # (auto) 0.1 10 ^3/uL (0-0.2); Eosinophils # (auto) 0.2 10 ^3/uL (0-0.8); Eosinophils % (auto) 1.5 % (0.0-7.0); Hematocrit 39.8 % (36.0-46.0); Hemoglobin 12.4 g/dL (12.2-16.2); Lymphocytes # (auto) 1.8 10 ^3/uL (0.4-5.4); Lymphocytes % (auto) 17.5 % (10.0-50.0); Mean Corpuscular Hemoglobin 28.6 pg (28.0-32.0); Mean Corpuscular Hgb Conc. 31.1 g/dL (32.0-36.0); Mean Corpuscular Volume 91.7 fL (80.0-100.0); Monocytes # (auto) 0.5 10 ^3/uL (0-1.3); Monocytes % (auto) 5.1 % (0.0-12.0); Neutrophils # (auto) 7.6 10 ^3/uL (1.6-8.6); Neutrophils % (auto) 74.9 % (37.0-80.0); Nucleated Red Blood Cells % 0.2 %; Red Blood Cells 4.34 10^6/uL (4.0-5.20); Red Cell Distribution Width 18.5 % (11.8-14.3); White Blood Cell 10.1 10^3/uL (4.4-10.8)
[2021-06-20 10:48] LABS: Albumin 1.8 g/dL (3.4-5.0); Calcium 8.2 mg/dL (8.5-10.1); Potassium 4.3 mmol/L (3.5-5.1)
[2021-06-20 10:51] LABS: BUN/Creatinine Ratio 14.7; Bilirubin, Total 0.7 mg/dL (0.2-1.0); Total Protein 6.8 g/dL (6.4-8.2)
[2021-06-20] MEDS ORDERED: METOPROLOL TARTRATE 25 MG TAB PO ONE (11:45)
[2021-06-20 12:12] LABS: Urine Bacteria FEW /hpf (None Seen); Urine Blood 2+ /uL (Negative); Urine Hyaline Cast FEW /lpf (0 - 2); Urine Mucus FEW (None Seen); Urine WBC 94 /hpf (0 - 5)
[2021-06-20] MEDS ORDERED: IOHEXOL 350 MG/ML 100ML IJ ONE (12:58)
[2021-06-20 13:00] VITALS: BP 157/120
[2021-06-20] MEDS ORDERED: HEPARIN SODIUM (PORCINE) 5000 UNITS/ML 1ML VIAL IV ONE (14:00)
[2021-06-20] MEDS: MORPHINE SULFATE INJECTION 2 MG/ML SYRG IV PRN (14:29)
[2021-06-20] MEDS: HEPARIN DRIP/D5W 100UNITS/ML 250 ML IV SCH (14:43)
[2021-06-20] MEDS: ONDANSETRON HCL 4 MG/2 ML VIAL IV PRN (14:50)
[2021-06-20 15:20] LABS: INR 1.06 (0.9-1.15); Partial Thromboplastin Time 27.4 sec (23.6-33.0)
[2021-06-20 17:00] VITALS: BP 143/94
[2021-06-20] MEDS: FUROSEMIDE 40 MG/4 ML VIAL IV SCH (18:09)
[2021-06-20] MEDS: ATORVASTATIN 20 MG TAB PO SCH (20:14)
[2021-06-20] MEDS: METOPROLOL TARTRATE 25 MG TAB PO SCH (21:43)
[2021-06-20 21:49] LABS: INR 1.03 (0.9-1.15); Partial Thromboplastin Time 28.5 sec (23.6-33.0)
[2021-06-20 22:43] VITALS: BP 113/71
[2021-06-21 01:36] LABS: Albumin 1.8 g/dL (3.4-5.0); BUN/Creatinine Ratio 14.4; Calcium 8.1 mg/dL (8.5-10.1)
[2021-06-21] MEDS: IPRATROPIUM BROM 0.5 MG/2.5ML INH SOL NEB SCH ×4 (02:40→17:49)
[2021-06-21 02:53] LABS: Total Protein 6.7 g/dL (6.4-8.2)
[2021-06-21 05:01] VITALS: BP 118/79
[2021-06-21] MEDS: FUROSEMIDE 40 MG/4 ML VIAL IV SCH ×2 (05:28→18:16)
[2021-06-21] MEDS: ACCU-CHEK COMFORT CURVE STRIP VI SCH ×4 (06:04→22:29)
[2021-06-21] MEDS: InsuLIN REG 1unit/0.01ml Soln (100units/ml) SC SCH ×4 (06:05→22:00)
[2021-06-21 09:00] VITALS: BP 113/79
[2021-06-21 09:12] LABS: INR 1.04 (0.9-1.15); Partial Thromboplastin Time 28.6 sec (23.6-33.0)
[2021-06-21] MEDS: ASPirin-EC 81 mg tab PO SCH (09:23)
[2021-06-21] MEDS: ONDANSETRON HCL 4 MG/2 ML VIAL IV PRN (09:24)
[2021-06-21] MEDS: MORPHINE SULFATE INJECTION 2 MG/ML SYRG IV PRN (09:30)
[2021-06-21] MEDS: METOPROLOL TARTRATE 25 MG TAB PO SCH ×2 (09:30→22:00)
[2021-06-21] MEDS ORDERED: HEPARIN SODIUM (PORCINE) 5000 UNITS/ML 1ML VIAL IV ONE ×2 (10:00→23:30)
[2021-06-21 10:56] LABS: Basophils # (auto) 0.1 10 ^3/uL (0-0.2); Basophils % (auto) 0.5 % (0.0-2.0); Eosinophils # (auto) 0.2 10 ^3/uL (0-0.8); Eosinophils % (auto) 1.5 % (0.0-7.0); Hematocrit 38.8 % (36.0-46.0); Hemoglobin 12.5 g/dL (12.2-16.2); Lymphocytes # (auto) 1.5 10 ^3/uL (0.4-5.4); Lymphocytes % (auto) 14.1 % (10.0-50.0); Mean Corpuscular Hemoglobin 29.2 pg (28.0-32.0); Mean Corpuscular Hgb Conc. 32.3 g/dL (32.0-36.0); Mean Corpuscular Volume 90.6 fL (80.0-100.0); Monocytes # (auto) 0.6 10 ^3/uL (0-1.3); Monocytes % (auto) 5.4 % (0.0-12.0); Neutrophils # (auto) 8.6 10 ^3/uL (1.6-8.6); Neutrophils % (auto) 78.5 % (37.0-80.0); Nucleated Red Blood Cells % 0.1 %; Red Blood Cells 4.28 10^6/uL (4.0-5.20); Red Cell Distribution Width 18.3 % (11.8-14.3); White Blood Cell 10.9 10^3/uL (4.4-10.8)
[2021-06-21 13:00] VITALS: BP 127/81
[2021-06-21] MEDS: HEPARIN DRIP/D5W 100UNITS/ML 250 ML IV SCH (14:01)
[2021-06-21 17:00] VITALS: BP 114/77
[2021-06-21 22:00] VITALS: BP 107/73
[2021-06-21] MEDS: ATORVASTATIN 20 MG TAB PO SCH (22:15)
[2021-06-22 05:00] VITALS: BP 119/85
[2021-06-22] MEDS: IPRATROPIUM BROM 0.5 MG/2.5ML INH SOL NEB SCH ×4 (06:11→19:16)
[2021-06-22] MEDS: HEPARIN DRIP/D5W 100UNITS/ML 250 ML IV SCH (06:15)
[2021-06-22] MEDS: InsuLIN REG 1unit/0.01ml Soln (100units/ml) SC SCH ×4 (06:45→22:00)
[2021-06-22] MEDS: ACCU-CHEK COMFORT CURVE STRIP VI SCH ×4 (06:46→22:19)
[2021-06-22] MEDS: FUROSEMIDE 40 MG/4 ML VIAL IV SCH ×2 (07:00→18:00)
[2021-06-22 07:18] LABS: Basophils # (auto) 0 10 ^3/uL (0-0.2); Basophils % (auto) 0.3 % (0.0-2.0); Eosinophils # (auto) 0.1 10 ^3/uL (0-0.8); Eosinophils % (auto) 0.7 % (0.0-7.0); Hemoglobin 11.4 g/dL (12.2-16.2); Lymphocytes # (auto) 1.2 10 ^3/uL (0.4-5.4); Lymphocytes % (auto) 10.8 % (10.0-50.0); Mean Corpuscular Hemoglobin 28.9 pg (28.0-32.0); Mean Corpuscular Hgb Conc. 31.7 g/dL (32.0-36.0); Mean Corpuscular Volume 91.1 fL (80.0-100.0); Monocytes # (auto) 0.8 10 ^3/uL (0-1.3); Monocytes % (auto) 6.9 % (0.0-12.0); Neutrophils # (auto) 9.2 10 ^3/uL (1.6-8.6); Neutrophils % (auto) 81.3 % (37.0-80.0); Nucleated Red Blood Cells % 0.1 %; Red Blood Cells 3.95 10^6/uL (4.0-5.20); Red Cell Distribution Width 18.4 % (11.8-14.3); White Blood Cell 11.4 10^3/uL (4.4-10.8)
[2021-06-22 07:29] LABS: INR 1.06 (0.9-1.15); Partial Thromboplastin Time 33.6 sec (23.6-33.0)
[2021-06-22 09:00] VITALS: BP 114/71
[2021-06-22] MEDS: METOPROLOL TARTRATE 25 MG TAB PO SCH ×2 (10:00→22:20)
[2021-06-22] MEDS: ASPirin-EC 81 mg tab PO SCH (10:00)
[2021-06-22] MEDS: POTASSIUM CHL 20 Meq TABLET PO SCH (10:00)
[2021-06-22] MEDS: HYDROcodone-ACET 5/325MG TAB PO PRN (10:00)
[2021-06-22] MEDS: FAMOTIDINE 20 MG TAB PO SCH (10:00)
[2021-06-22 10:14] LABS: INR 1.06 (0.9-1.15); Partial Thromboplastin Time 33.4 sec (23.6-33.0)
[2021-06-22] MEDS ORDERED: HEPARIN SODIUM (PORCINE) 5000 UNITS/ML 1ML VIAL IV ONE (11:30)
[2021-06-22 13:00] VITALS: BP 113/75
[2021-06-22 17:00] VITALS: BP 107/66
[2021-06-22 18:51] LABS: INR 1.1 (0.9-1.15); Partial Thromboplastin Time 36.3 sec (23.6-33.0)
[2021-06-22] MEDS: ONDANSETRON HCL 4 MG/2 ML VIAL IV PRN (18:59)
[2021-06-22 22:00] VITALS: BP 109/69
[2021-06-22] MEDS: ATORVASTATIN 20 MG TAB PO SCH (22:19)
[2021-06-23] MEDS ORDERED: LORazepam 2MG/ML-1ML VIAL IV ONE (01:00)
[2021-06-23] MEDS: ONDANSETRON HCL 4 MG/2 ML VIAL IV PRN (01:03)
[2021-06-23 02:10] LABS: INR 1.12 (0.9-1.15)
[2021-06-23] MEDS: IPRATROPIUM BROM 0.5 MG/2.5ML INH SOL NEB SCH ×4 (03:09→20:32)
[2021-06-23 05:00] VITALS: BP 121/71
[2021-06-23 05:27] LABS: Basophils # (auto) 0.1 10 ^3/uL (0-0.2); Basophils % (auto) 1.4 % (0.0-2.0); Eosinophils # (auto) 0.1 10 ^3/uL (0-0.8); Eosinophils % (auto) 0.7 % (0.0-7.0); Hematocrit 36.3 % (36.0-46.0); Hemoglobin 11.5 g/dL (12.2-16.2); Lymphocytes # (auto) 1.4 10 ^3/uL (0.4-5.4); Mean Corpuscular Hgb Conc. 31.6 g/dL (32.0-36.0); Mean Corpuscular Volume 91.6 fL (80.0-100.0); Monocytes # (auto) 0.7 10 ^3/uL (0-1.3); Monocytes % (auto) 6.3 % (0.0-12.0); Neutrophils # (auto) 8.5 10 ^3/uL (1.6-8.6); Neutrophils % (auto) 78.6 % (37.0-80.0); Red Blood Cells 3.97 10^6/uL (4.0-5.20); Red Cell Distribution Width 18.6 % (11.8-14.3); White Blood Cell 10.8 10^3/uL (4.4-10.8)
[2021-06-23 05:38] LABS: INR 1.1 (0.9-1.15); Partial Thromboplastin Time 39.2 sec (23.6-33.0)
[2021-06-23 05:46] LABS: Calcium 8.8 mg/dL (8.5-10.1); Potassium 4.1 mmol/L (3.5-5.1)
[2021-06-23 05:54] LABS: BUN/Creatinine Ratio 15.7
[2021-06-23] MEDS: FUROSEMIDE 40 MG/4 ML VIAL IV SCH ×2 (06:16→10:14)
[2021-06-23] MEDS: InsuLIN REG 1unit/0.01ml Soln (100units/ml) SC SCH ×4 (06:32→22:00)
[2021-06-23] MEDS: ACCU-CHEK COMFORT CURVE STRIP VI SCH ×4 (06:32→22:42)
[2021-06-23] MEDS: HEPARIN DRIP/D5W 100UNITS/ML 250 ML IV SCH (09:00)
[2021-06-23 09:03] LABS: INR 1.1 (0.9-1.15); Partial Thromboplastin Time 37.6 sec (23.6-33.0)
[2021-06-23 10:00] VITALS: BP 127/81
[2021-06-23] MEDS: ASPirin-EC 81 mg tab PO SCH (10:05)
[2021-06-23] MEDS: POTASSIUM CHL 20 Meq TABLET PO SCH (10:05)
[2021-06-23] MEDS: METOPROLOL TARTRATE 25 MG TAB PO SCH ×2 (10:06→22:48)
[2021-06-23] MEDS: FAMOTIDINE 20 MG TAB PO SCH (10:06)
[2021-06-23 12:41] VITALS: BP 128/70
[2021-06-23] MEDS ORDERED: IPRIH IN (12:44)
[2021-06-23] MEDS ORDERED: ALBUAER3 IN (12:44)
[2021-06-23] MEDS ORDERED: METH500T22 PO (14:27)
[2021-06-23 16:04] LABS: INR 1.12 (0.9-1.15); Partial Thromboplastin Time 54.7 sec (23.6-33.0)
[2021-06-23 16:49] VITALS: BP 117/78
[2021-06-23] MEDS: HYDROcodone-ACET 5/325MG TAB PO PRN (20:22)
[2021-06-23 22:00] VITALS: BP 147/80
[2021-06-23] MEDS: ATORVASTATIN 20 MG TAB PO SCH (22:48)
[2021-06-23 22:50] LABS: INR 1.14 (0.9-1.15); Partial Thromboplastin Time 60.1 sec (23.6-33.0)
[2021-06-24] MEDS: HEPARIN DRIP/D5W 100UNITS/ML 250 ML IV SCH (02:05)
[2021-06-24 05:00] VITALS: BP 140/80
[2021-06-24] MEDS: InsuLIN REG 1unit/0.01ml Soln (100units/ml) SC SCH ×4 (06:27→22:00)
[2021-06-24] MEDS: ACCU-CHEK COMFORT CURVE STRIP VI SCH ×3 (06:27→17:35)
[2021-06-24] MEDS: IPRATROPIUM BROM 0.5 MG/2.5ML INH SOL NEB SCH ×4 (06:44→19:20)
[2021-06-24 07:13] LABS: Basophils # (auto) 0.1 10 ^3/uL (0-0.2); Eosinophils # (auto) 0.2 10 ^3/uL (0-0.8); Eosinophils % (auto) 2.2 % (0.0-7.0); Hematocrit 33.7 % (36.0-46.0); Hemoglobin 10.7 g/dL (12.2-16.2); Lymphocytes # (auto) 1.4 10 ^3/uL (0.4-5.4); Lymphocytes % (auto) 14.8 % (10.0-50.0); Mean Corpuscular Hemoglobin 28.9 pg (28.0-32.0); Mean Corpuscular Hgb Conc. 31.9 g/dL (32.0-36.0); Mean Corpuscular Volume 90.9 fL (80.0-100.0); Monocytes # (auto) 0.7 10 ^3/uL (0-1.3); Monocytes % (auto) 7.6 % (0.0-12.0); Neutrophils # (auto) 7.1 10 ^3/uL (1.6-8.6); Neutrophils % (auto) 74.4 % (37.0-80.0); Nucleated Red Blood Cells % 0.1 %; Red Blood Cells 3.71 10^6/uL (4.0-5.20); Red Cell Distribution Width 18.1 % (11.8-14.3); White Blood Cell 9.5 10^3/uL (4.4-10.8)
[2021-06-24 07:27] LABS: BUN/Creatinine Ratio 16.4; Calcium 8.4 mg/dL (8.5-10.1); Potassium 4.1 mmol/L (3.5-5.1)
[2021-06-24 07:59] LABS: INR 1.1 (0.9-1.15); Partial Thromboplastin Time 66.9 sec (23.6-33.0)
[2021-06-24 09:00] VITALS: BP 114/75
[2021-06-24] MEDS: FAMOTIDINE 20 MG TAB PO SCH (09:45)
[2021-06-24] MEDS: FUROSEMIDE 40 MG/4 ML VIAL IV SCH (09:45)
[2021-06-24] MEDS: METOPROLOL TARTRATE 25 MG TAB PO SCH (09:45)
[2021-06-24] MEDS: ASPirin-EC 81 mg tab PO SCH (09:45)
[2021-06-24] MEDS: POTASSIUM CHL 20 Meq TABLET PO SCH (09:45)
[2021-06-24] MEDS ORDERED: CLOPIDOGREL BISULFATE 75 MG TAB PO ONE (11:30)
[2021-06-24] MEDS ORDERED: ACETYLCYSTEINE ORAL for CIN 20%(200MG/ML) 4ML PO ONE (12:15)
[2021-06-24] MEDS: HYDROcodone-ACET 5/325MG TAB PO PRN ×2 (12:47→20:27)
[2021-06-24 13:00] VITALS: BP 111/72
[2021-06-24 22:00] VITALS: BP 118/65
[2021-06-24] MEDS: ACETYLCYSTEINE ORAL for CIN 20%(200MG/ML) 4ML PO SCH (22:00)
[2021-06-24] MEDS: ATORVASTATIN 20 MG TAB PO SCH (23:59)
[2021-06-25] MEDS: ACCU-CHEK COMFORT CURVE STRIP VI SCH ×5 (00:01→22:27)
[2021-06-25] MEDS: IPRATROPIUM BROM 0.5 MG/2.5ML INH SOL NEB SCH ×4 (00:02→18:07)
[2021-06-25 05:00] VITALS: BP 126/88
[2021-06-25] MEDS: InsuLIN REG 1unit/0.01ml Soln (100units/ml) SC SCH ×4 (06:19→22:00)
[2021-06-25 07:05] LABS: Basophils # (auto) 0 10 ^3/uL (0-0.2); Basophils % (auto) 0.5 % (0.0-2.0); Eosinophils # (auto) 0.3 10 ^3/uL (0-0.8); Eosinophils % (auto) 3.1 % (0.0-7.0); Hemoglobin 11.1 g/dL (12.2-16.2); Lymphocytes # (auto) 1.1 10 ^3/uL (0.4-5.4); Lymphocytes % (auto) 12.2 % (10.0-50.0); Mean Corpuscular Hemoglobin 28.8 pg (28.0-32.0); Mean Corpuscular Hgb Conc. 31.8 g/dL (32.0-36.0); Mean Corpuscular Volume 90.7 fL (80.0-100.0); Monocytes # (auto) 0.7 10 ^3/uL (0-1.3); Monocytes % (auto) 8.1 % (0.0-12.0); Neutrophils # (auto) 6.7 10 ^3/uL (1.6-8.6); Neutrophils % (auto) 76.1 % (37.0-80.0); Nucleated Red Blood Cells % 0.2 %; Red Blood Cells 3.86 10^6/uL (4.0-5.20); White Blood Cell 8.8 10^3/uL (4.4-10.8)
[2021-06-25 07:17] LABS: INR 1.09 (0.9-1.15); Partial Thromboplastin Time 27.1 sec (23.6-33.0)
[2021-06-25 07:23] LABS: Potassium 3.9 mmol/L (3.5-5.1)
[2021-06-25 07:33] LABS: BUN/Creatinine Ratio 16.3; Calcium 8.3 mg/dL (8.5-10.1)
[2021-06-25] MEDS: HYDROcodone-ACET 5/325MG TAB PO PRN ×3 (08:58→22:28)
[2021-06-25 09:00] VITALS: BP 131/89
[2021-06-25] MEDS: CLOPIDOGREL BISULFATE 75 MG TAB PO SCH (10:00)
[2021-06-25] MEDS: ENOXAPARIN SOD 100 MG/1 ML SYRINGE SC SCH (10:00)
[2021-06-25] MEDS: POTASSIUM CHL 20 Meq TABLET PO SCH (10:00)
[2021-06-25] MEDS: ASPirin-EC 81 mg tab PO SCH (10:38)
[2021-06-25] MEDS: ACETYLCYSTEINE ORAL for CIN 20%(200MG/ML) 4ML PO SCH ×2 (10:39→22:26)
[2021-06-25] MEDS: FAMOTIDINE 20 MG TAB PO SCH (10:39)
[2021-06-25] MEDS: METOPROLOL TARTRATE 25 MG TAB PO SCH ×3 (10:39→22:26)
[2021-06-25 13:00] VITALS: BP 149/87
[2021-06-25 17:00] VITALS: BP 131/74
[2021-06-25 22:00] VITALS: BP 135/70
[2021-06-25] MEDS: ATORVASTATIN 20 MG TAB PO SCH (22:26)
[2021-06-26] MEDS: IPRATROPIUM BROM 0.5 MG/2.5ML INH SOL NEB SCH ×5 (00:30→18:00)
[2021-06-26 05:00] VITALS: BP 140/82
[2021-06-26] MEDS: InsuLIN REG 1unit/0.01ml Soln (100units/ml) SC SCH ×4 (06:53→22:00)
[2021-06-26] MEDS: ACCU-CHEK COMFORT CURVE STRIP VI SCH ×4 (06:53→22:40)
[2021-06-26 09:00] VITALS: BP 148/83
[2021-06-26] MEDS: POTASSIUM CHL 20 Meq TABLET PO SCH (09:47)
[2021-06-26] MEDS: ASPirin-EC 81 mg tab PO SCH (09:47)
[2021-06-26] MEDS: METOPROLOL TARTRATE 25 MG TAB PO SCH (09:47)
[2021-06-26] MEDS: ENOXAPARIN SOD 100 MG/1 ML SYRINGE SC SCH (09:48)
[2021-06-26] MEDS: CLOPIDOGREL BISULFATE 75 MG TAB PO SCH (09:48)
[2021-06-26] MEDS: FAMOTIDINE 20 MG TAB PO SCH (09:48)
[2021-06-26] MEDS: HYDROcodone-ACET 5/325MG TAB PO PRN (09:49)
[2021-06-26 10:04] LABS: Basophils # (auto) 0.1 10 ^3/uL (0-0.2); Basophils % (auto) 0.6 % (0.0-2.0); Eosinophils # (auto) 0.3 10 ^3/uL (0-0.8); Hematocrit 34.5 % (36.0-46.0); Hemoglobin 11.2 g/dL (12.2-16.2); Lymphocytes # (auto) 0.9 10 ^3/uL (0.4-5.4); Lymphocytes % (auto) 10.7 % (10.0-50.0); Mean Corpuscular Hemoglobin 29.3 pg (28.0-32.0); Mean Corpuscular Hgb Conc. 32.4 g/dL (32.0-36.0); Mean Corpuscular Volume 90.4 fL (80.0-100.0); Monocytes # (auto) 0.6 10 ^3/uL (0-1.3); Monocytes % (auto) 7.5 % (0.0-12.0); Neutrophils # (auto) 6.6 10 ^3/uL (1.6-8.6); Neutrophils % (auto) 77.2 % (37.0-80.0); Red Blood Cells 3.82 10^6/uL (4.0-5.20); White Blood Cell 8.5 10^3/uL (4.4-10.8)
[2021-06-26 10:09] LABS: Albumin 1.9 g/dL (3.4-5.0); Calcium 8.3 mg/dL (8.5-10.1)
[2021-06-26 10:17] LABS: BUN/Creatinine Ratio 15.3; Bilirubin, Total 1.3 mg/dL (0.2-1.0); Total Protein 7.3 g/dL (6.4-8.2)
[2021-06-26 13:00] VITALS: BP 128/104
[2021-06-26 17:29] VITALS: BP 152/82
[2021-06-26 22:00] VITALS: BP 133/87
[2021-06-26] MEDS: ATORVASTATIN 20 MG TAB PO SCH (22:39)
[2021-06-27] MEDS: IPRATROPIUM BROM 0.5 MG/2.5ML INH SOL NEB SCH ×3 (00:23→17:51)
[2021-06-27] MEDS: InsuLIN REG 1unit/0.01ml Soln (100units/ml) SC SCH ×4 (07:00→22:00)
[2021-06-27] MEDS: ACCU-CHEK COMFORT CURVE STRIP VI SCH ×4 (07:10→22:04)
[2021-06-27 08:50] VITALS: BP 160/93
[2021-06-27] MEDS: FAMOTIDINE 20 MG TAB PO SCH (09:51)
[2021-06-27] MEDS: ENOXAPARIN SOD 100 MG/1 ML SYRINGE SC SCH (09:51)
[2021-06-27] MEDS: CLOPIDOGREL BISULFATE 75 MG TAB PO SCH (09:51)
[2021-06-27] MEDS: ASPirin-EC 81 mg tab PO SCH (09:51)
[2021-06-27 13:00] VITALS: BP 154/114
[2021-06-27] MEDS ORDERED: ISOSORBIDE MONONITRATE 20 MG TAB PO ONE (13:30)
[2021-06-27 14:36] LABS: Basophils # (auto) 0.1 10 ^3/uL (0-0.2); Basophils % (auto) 0.6 % (0.0-2.0); Eosinophils # (auto) 0.3 10 ^3/uL (0-0.8); Eosinophils % (auto) 3.7 % (0.0-7.0); Hematocrit 35.2 % (36.0-46.0); Hemoglobin 11.5 g/dL (12.2-16.2); Mean Corpuscular Hemoglobin 29.5 pg (28.0-32.0); Mean Corpuscular Hgb Conc. 32.7 g/dL (32.0-36.0); Mean Corpuscular Volume 90.1 fL (80.0-100.0); Monocytes # (auto) 0.6 10 ^3/uL (0-1.3); Monocytes % (auto) 6.7 % (0.0-12.0); Neutrophils # (auto) 7.3 10 ^3/uL (1.6-8.6); Red Cell Distribution Width 17.9 % (11.8-14.3); White Blood Cell 9.3 10^3/uL (4.4-10.8)
[2021-06-27 14:56] LABS: Albumin 2.1 g/dL (3.4-5.0); Calcium 8.6 mg/dL (8.5-10.1); Potassium 3.5 mmol/L (3.5-5.1)
[2021-06-27 15:02] LABS: BUN/Creatinine Ratio 13.5; Bilirubin, Total 1.2 mg/dL (0.2-1.0); Total Protein 7.8 g/dL (6.4-8.2)
[2021-06-27 16:50] VITALS: BP 155/98
[2021-06-27] MEDS ORDERED: LACTULOSE 20Gm/30ML SOLN PO PRN (17:45)
[2021-06-27 22:00] VITALS: BP 150/101
[2021-06-27] MEDS: ATORVASTATIN 20 MG TAB PO SCH (22:03)
[2021-06-28] MEDS: IPRATROPIUM BROM 0.5 MG/2.5ML INH SOL NEB SCH ×4 (00:11→18:21)
[2021-06-28] MEDS: InsuLIN REG 1unit/0.01ml Soln (100units/ml) SC SCH ×2 (06:36→11:26)
[2021-06-28] MEDS: ACCU-CHEK COMFORT CURVE STRIP VI SCH ×2 (06:36→11:25)
[2021-06-28 09:00] VITALS: BP 164/91
[2021-06-28] MEDS: ASPirin-EC 81 mg tab PO SCH (09:59)
[2021-06-28] MEDS: FAMOTIDINE 20 MG TAB PO SCH (10:00)
[2021-06-28] MEDS: ISOSORBIDE MONONITRATE ER 60 MG TAB PO SCH (10:00)
[2021-06-28] MEDS: ENOXAPARIN SOD 100 MG/1 ML SYRINGE SC SCH (10:00)
[2021-06-28] MEDS: CLOPIDOGREL BISULFATE 75 MG TAB PO SCH (10:00)
[2021-06-28 11:44] VITALS: BP 164/91
[2021-06-28 12:46] VITALS: BP 160/96
[2021-06-28] MEDS: hydrALAZINE HCL 10 MG TAB PO PRN (13:30)
[2021-06-28 17:00] VITALS: BP 151/99
[2021-06-28] MEDS: HYDROcodone-ACET 5/325MG TAB PO PRN (18:10)
[2021-06-28 22:00] VITALS: BP 148/101
[2021-06-28] MEDS: ATORVASTATIN 20 MG TAB PO SCH (22:20)
[2021-06-28] MEDS: MORPHINE SULFATE INJECTION 2 MG/ML SYRG IV PRN (22:25)
[2021-06-29 05:00] VITALS: BP 138/76
[2021-06-29 09:00] VITALS: BP 149/90
[2021-06-29] MEDS: ASPirin-EC 81 mg tab PO SCH (09:59)
[2021-06-29] MEDS: HYDROcodone-ACET 5/325MG TAB PO PRN (10:00)
[2021-06-29] MEDS: CLOPIDOGREL BISULFATE 75 MG TAB PO SCH (10:00)
[2021-06-29] MEDS: ISOSORBIDE MONONITRATE ER 60 MG TAB PO SCH (10:00)
[2021-06-29] MEDS: FAMOTIDINE 20 MG TAB PO SCH (10:00)
[2021-06-29] MEDS: ENOXAPARIN SOD 100 MG/1 ML SYRINGE SC SCH (10:00)
[2021-06-29] MEDS: IPRATROPIUM BROM 0.5 MG/2.5ML INH SOL NEB SCH ×3 (10:10→19:00)
[2021-06-29 13:00] VITALS: BP 125/79
[2021-06-29 17:00] VITALS: BP 123/68
[2021-06-29] MEDS: MORPHINE SULFATE INJECTION 2 MG/ML SYRG IV PRN (17:19)
[2021-06-29 22:00] VITALS: BP 142/81
[2021-06-29] MEDS: ATORVASTATIN 20 MG TAB PO SCH (22:00)
[2021-06-30] MEDS: IPRATROPIUM BROM 0.5 MG/2.5ML INH SOL NEB SCH (00:03)
== END 2021-06-30 00:53 | disposition short-term general hospital (02) | DRG 190 ==
LOC: EDBD 22:41 → ER 22:41 → TELE 06-20 00:54 → TELE-WESTW 06-20 11:36
PROVIDERS: ADMIT Nurse Practitioner Family; ATTEND Nurse Practitioner Family
DX: I21.4 Non-ST elevation (NSTEMI) myocardial infarction (principal); I50.21 Acute systolic (congestive) heart failure; N17.9 Acute kidney failure, unspecified; I48.92 Unspecified atrial flutter; Z68.43 Body mass index [BMI] 50.0-59.9, adult; I31.3 Pericardial effusion (noninflammatory); I48.91 Unspecified atrial fibrillation; J44.9 Chronic obstructive pulmonary disease, unspecified; E66.01 Morbid (severe) obesity due to excess calories; E78.5 Hyperlipidemia, unspecified; I20.9 Angina pectoris, unspecified; I11.0 Hypertensive heart disease with heart failure; I50.82 Biventricular heart failure; E83.42 Hypomagnesemia; M19.90 Unspecified osteoarthritis, unspecified site; Z20.822 Contact with and (suspected) exposure to COVID-19; Z79.4 Long term (current) use of insulin; Z79.899 Other long term (current) drug therapy; Z82.49 Family history of ischemic heart disease and other diseases of the circulatory system; Z83.3 Family history of diabetes mellitus; Z99.81 Dependence on supplemental oxygen; Z91.012 Allergy to eggs; Z88.5 Allergy status to narcotic agent; Z91.013 Allergy to seafood; Z88.8 Allergy status to other drugs, medicaments and biological substances; Z91.018 Allergy to other foods
CPT/HCPCS: 36415; 71275; 80048; 80053; 81001; 81025; 82962; 83036; 83735; 83880; 84484; 84702; 85025; 85379; 85610; 85730; 87086; 87426; 93005; 93306; 93970; 94640; 96374; 96375; 97163; 99291; G0378; J2405